=== PATIENT | female | born 1950 | race Caucasian/White ===

== ENCOUNTER 2016-12-18 17:02 | Observation (INO) ==
[2016-12-18] MEDS ORDERED: Aspirin 325 MG TABLET PO ONE (17:28)
[2016-12-18] MEDS ORDERED: 0.9 % Sodium Chloride 1,000 ML IVC ONE (17:28)
[2016-12-18 17:56] LABS: Basophils % 0.2 %; Eosinophils # 0.1 K/mcL (0.0-0.6); Eosinophils % 0.5 %; Hematocrit 41.8 % (35.3-44.9); Hemoglobin 13.9 g/dL (11.5-15.4); Immature Granulocytes % 0.5 % (0-4); Lymphocytes # 3.5 K/mcL (0.6-4.6); Lymphocytes % 26.3 %; Mean Corpuscular HGB Conc 33.3 g/dL (31.6-35.5); Mean Corpuscular Hemoglobin 30.5 pg (28.0-33.3); Mean Corpuscular Volume 91.7 fL (83.0-100.0); Mean Platelet Volume 10.2 fL (9.4-12.4); Monocytes % 7.3 %; Neutrophils # 8.5 K/mcL (1.6-8.9); Platelet Count 236 K/mcL (140-400); Red Blood Count 4.56 M/mcL (3.82-4.97); Red Cell Distribution Width 13.2 % (11.5-14.5); Segmented Neutrophils % 65.2 %
[2016-12-18 18:02] LABS: INR 1.1; Prothrombin Time 12.3 Seconds (9.4-12.1)
[2016-12-18 18:04] LABS: Activated Partial Thrombo Time 29.4 Seconds (26.0-36.0)
[2016-12-18 18:08] LABS: BUN/Creatinine Ratio 14 (6-26); Blood Urea Nitrogen 14 mg/dL (7-20); Calcium 9.9 mg/dL (8.6-10.8); Carbon Dioxide 26 mEq/L (19-29); Chloride 103 mEq/L (98-109); Glucose 110 mg/dL (70-99); Magnesium 1.7 mg/dL (1.6-2.6); Osmolality,Calculated 285 (280-300); Potassium 4.2 mEq/L (3.5-4.5); Sodium 137 mEq/L (136-145); eGFR For African Americans > 60 (> 60); eGFR For Non-African Americans 55 (> 60)
[2016-12-18 18:30] LABS: Thyroid Stimulating Hormone 1.334 mcIU/mL (0.350-4.840)
[2016-12-18] MEDS ORDERED: *HR* LORazepam 1 MG TABLET PO ONE (19:36)
--- NOTE | 2016-12-18 20:04 | Emergency Department Note ---
Disposition Clinical Impression: Palpitations Chest pain Qualifiers: Chest pain type: precordial pain Qualified Code(s): R07.2 - Precordial pain Disposition: Admitted As Inpatient Condition: Good Time of Disposition: 20:53 Arrhythmia/Palpitations HPI - General Chief Complaint: ED Arrhythmia/Palpitations Stated Complaint: ARUN, rapid HR Time Seen by Provider: 12/18/16 17:08 Source: patient Limitations: no limitations Nursing Notes Reviewed: Yes Vital Signs Reviewed: Yes - History of Present Illness HPI Narrative: 66-year-old female complains of palpitations for a few days. Earlier today she started to have shortness of breath and chest pain while walking. She had been calling Dr. Carreon's office this week and was told to come to the emergency department. - Related Data Home Medications Medication Instructions Recorded Confirmed Albuterol Sulfate [Proair Hfa] 2 puff IH Q4H PRN 12/11/16 12/18/16 Cetirizine HCl [Zyrtec] 10 mg PO DAILY 12/11/16 12/18/16 GlipiZIDE XL (24 HR) [Glucotrol XL] 2.5 mg PO 0800 12/11/16 12/18/16 LORazepam [Ativan] 0.5 mg PO BID 12/11/16 12/18/16 Losartan [Cozaar] 25 mg PO DAILY 12/11/16 12/18/16 Pantoprazole Sodium 40 mg PO BID 12/11/16 12/18/16 Ranitidine HCl [Acid Wave Solder Offbearer] 150 mg PO HS 12/11/16 12/18/16 Allergies Allergy/AdvReac Type Severity Reaction Status Date / Time Beclomethasone [From Qvar] Allergy Rash Verified 12/18/16 20:12 Hydromorphone [From Dilaudid] Allergy Confusion Verified 12/18/16 20:12 Sulfa (Sulfonamide Allergy Rash Verified 12/18/16 20:12 Antibiotics) naproxen AdvReac Gastrointestinal Verified 12/18/16 20:12 Upset Oxytetracycline AdvReac Gastrointestinal Verified 12/18/16 20:12 Upset prednisone AdvReac Chest Pain Verified 12/18/16 20:12 trazodone AdvReac See Verified 12/18/16 20:12 Comments All systems ED: reviewed and negative except as stated. Constitutional: Denies: fever, chills Eyes: Denies: eye pain ENT ED: Denies: ear pain Cardiovascular: Reports: as per HPI Respiratory: Reports: as per HPI Gastrointestinal: Denies: abdominal pain, nausea, vomiting Genitourinary: Denies: dysuria Musculoskeletal: Reports: neck pain Integumentary: Denies: rash Neurological: Denies: headache Psychiatric: Denies: anxiety Endocrine: Denies: fatigue Hematological/Lymphatic: Denies: easy bleeding Allergic/Immunologic: Denies: facial swelling Past Medical History - Past Medical History Medical history: Reports: asthma, diabetes Psychiatric history: Reports: no psych history - Social History Smoking Status: Never smoker Smokeless Tobacco Status: No Alcohol use: Reports: none Drug use: Reports: none Physical Exam - General Limitations: no limitations General appearance: alert - Head Head exam: normocephalic - Eye Eye exam: Present: EOMI - ENT ENT exam: mucous membranes moist - Chest Chest inspection: Present: symmetric chest wall rise - Respiratory Respiratory exam: Present: normal lung sounds bilaterally. Absent: respiratory distress - Cardiovascular Cardiovascular exam: Present: regular rate, normal rhythm - Abdominal Exam Abdominal exam: Present: soft, Non-Tender - Extremities Exam Extremities exam: Present: normal inspection, full ROM, normal capillary refill - Back Exam Back exam: Present: full ROM - Neurological Exam Neurological exam: Present: alert, oriented X3 - Psychiatric Psychiatric exam: Present: normal affect, anxious - Skin Skin exam: Present: warm, dry, intact, normal color. Absent: rash, cyanosis, diaphoresis Course Course Narrative: 66-year-old female complains of palpitations for a few days. Earlier today she started to have shortness of breath and chest pain while walking. She had been calling Dr. Carreon's office this week and was told to come to the emergency department. Workup initiated by ledy. Patient seen and examined. She is in no acute distress. Nontoxic. She declines analgesics. She does appear anxious, related to stress of her health. We will order her Ativan. - Reevaluation(s) Reevaluation #1: Workup unremarkable. However due to the patient's risk factors, we will request admission for cardiac rule out. Discussed with Dr. Jimenez who agreed Time: 20:04 Reevaluation #2: Patient was discussed with and accepted by hospitalist Time: 20:53 Vital Signs Temperature 99.1 F 12/18/16 17:03 Pulse Rate 96 12/18/16 17:03 Respiratory Rate 18 12/18/16 17:03 Blood Pressure 141/77 12/18/16 17:03 O2 Sat by Pulse Oximetry 99 12/18/16 17:03 Temperature 98.6 F 12/19/16 03:33 Pulse Rate 88 12/19/16 03:33 Respiratory Rate 16 12/19/16 03:33 Blood Pressure 115/76 12/19/16 03:33 O2 Sat by Pulse Oximetry 94 12/19/16 03:33 Oxygen Delivery Oxygen Delivery Room Air Arrhythmia/Palpitations - Lab Data Result diagrams: 12/19/16 00:46 12/19/16 00:46 Lab Results 12/18/16 12/18/16 12/18/16 Range/Units 17:50 17:50 17:50 WBC 13.1 H (4.3-11.1) K/mcL RBC 4.56 (3.82-4.97) M/mcL Hgb 13.9 (11.5-15.4) g/dL Hct 41.8 (35.3-44.9) % MCV 91.7 (83.0-100.0) fL MCH 30.5 (28.0-33.3) pg MCHC 33.3 (31.6-35.5) g/dL RDW 13.2 (11.5-14.5) % Plt Count 236 (140-400) K/mcL MPV 10.2 (9.4-12.4) fL Immature Gran % 0.5 (0-4) % Seg Neutrophils % 65.2 % Lymphocytes % 26.3 % Monocytes % 7.3 % Eosinophils % 0.5 % Basophils % 0.2 % Neutrophils # 8.5 (1.6-8.9) K/mcL Lymphocytes # 3.5 (0.6-4.6) K/mcL Monocytes # 1.0 (0.0-1.3) K/mcL Eosinophils # 0.1 (0.0-0.6) K/mcL Basophils # 0.0 (0.0-0.2) K/mcL PT 12.3 H (9.4-12.1) Seconds INR 1.1 APTT 29.4 (26.0-36.0) Seconds Sodium 137 (136-145) mEq/L Potassium 4.2 (3.5-4.5) mEq/L Chloride 103 (98-109) mEq/L Carbon Dioxide 26 (19-29) mEq/L BUN 14 (7-20) mg/dL Creatinine 1.01 (0.57-1.11) mg/dL Est GFR ( Amer) > 60 (> 60) Est GFR (Non-Af Amer) 55 L (> 60) BUN/Creatinine Ratio 14 (6-26) Glucose 110 H (70-99) mg/dL Calculated Osmolality 285 (280-300) Calcium 9.9 (8.6-10.8) mg/dL Magnesium 1.7 (1.6-2.6) mg/dL Troponin I (0-0.03) ng/mL TSH 1.334 (0.350-4.840) mcIU/mL Urine Color (Yellow) Urine Clarity (Clear) Urine pH (5.0-8.0) pH Units Ur Specific [place] (1.010-1.025) Urine Protein (Neg-Trace) mg/dL Urine Glucose (UA) (Normal) mg/dL Urine Ketones (Negative) mg/dL Urine Blood (Negative) Urine Nitrite (Negative) Urine Bilirubin (Negative) Urine Urobilinogen (Normal) mg/dL Ur Leukocyte Esterase (Negative) Urine Microscopic RBC (0-3) per hpf Urine Microscopic WBC (0-3) per hpf Ur Squamous Epith Cells (None-Few) per lpf Urine Bacteria (None-Few) per hpf Hyaline Casts (None-Few) per lpf Ur Culture Indicated? (NO) 12/18/16 12/18/16 Range/Units 17:50 18:30 WBC (4.3-11.1) K/mcL RBC (3.82-4.97) M/mcL Hgb (11.5-15.4) g/dL Hct (35.3-44.9) % MCV (83.0-100.0) fL MCH (28.0-33.3) pg MCHC (31.6-35.5) g/dL RDW (11.5-14.5) % Plt Count (140-400) K/mcL MPV (9.4-12.4) fL Immature Gran % (0-4) % Seg Neutrophils % % Lymphocytes % % Monocytes % % Eosinophils % % Basophils % % Neutrophils # (1.6-8.9) K/mcL Lymphocytes # (0.6-4.6) K/mcL Monocytes # (0.0-1.3) K/mcL Eosinophils # (0.0-0.6) K/mcL Basophils # (0.0-0.2) K/mcL PT (9.4-12.1) Seconds INR APTT (26.0-36.0) Seconds Sodium (136-145) mEq/L Potassium (3.5-4.5) mEq/L Chloride (98-109) mEq/L Carbon Dioxide (19-29) mEq/L BUN (7-20) mg/dL Creatinine (0.57-1.11) mg/dL Est GFR ( Amer) (> 60) Est GFR (Non-Af Amer) (> 60) BUN/Creatinine Ratio (6-26) Glucose (70-99) mg/dL Calculated Osmolality (280-300) Calcium (8.6-10.8) mg/dL Magnesium (1.6-2.6) mg/dL Troponin I 0.00 (0-0.03) ng/mL TSH (0.350-4.840) mcIU/mL Urine Color Yellow (Yellow) Urine Clarity Clear (Clear) Urine pH 6.5 (5.0-8.0) pH Units Ur Specific [place] 1.007 L (1.010-1.025) Urine Protein Negative (Neg-Trace) mg/dL Urine Glucose (UA) Normal (Normal) mg/dL Urine Ketones Negative (Negative) mg/dL Urine Blood Small H (Negative) Urine Nitrite Negative (Negative) Urine Bilirubin Negative (Negative) Urine Urobilinogen Normal (Normal) mg/dL Ur Leukocyte Esterase Trace H (Negative) Urine Microscopic RBC 0-3 (0-3) per hpf Urine Microscopic WBC 3-5 H (0-3) per hpf Ur Squamous Epith Cells Moderate H (None-Few) per lpf Urine Bacteria None Seen (None-Few) per hpf Hyaline Casts None Seen (None-Few) per lpf Ur Culture Indicated? YES A (NO) Attestation Statement - Attestation Attestation: I, Alan Jimenez, examined this patient and my medical decision-making was reviewed with the GRAIN OPERATIONS MANAGER/PA/Advanced Practice Nurse/Resident Physician. I agree with the documented findings, disposition and treatment plan as described except to the extent set forth below. 66-year-old female presents with concerns of palpitations and weakness. Patient states her heart rate has intermittently been up to 140 bpm and resolves without intervention. Patient states she has intermittent chest pain with these palpitations. She recently had a cervical spine surgery performed by Dr. Sanchez and is currently wearing a cervical collar. Patient denies fever , chills, nausea, vomiting, abdominal pain. Patient is tearful during my exam however the lungs are clear to auscultation and the heart is in a regular rate and rhythm during my evaluation. Her initial troponin was negative. Patient will be admitted to the hospital for further care and evaluation of palpitations and chest pain.
[2016-12-18 20:13] LABS: Bilirubin,Urine Negative (Negative); Blood,Urine Small (Negative); Clarity,Urine Clear (Clear); Color,Urine Yellow (Yellow); Glucose,Urine (UA) Normal (Normal); Ketones,Urine Negative (Negative); Leukocyte Esterase,Urine Trace (Negative); Nitrite,Urine Negative (Negative); PH,Urine 6.5 pH Units (5.0-8.0); Protein,Urine Negative (Neg-Trace); Specific Gravity,Urine 1.007 (1.010-1.025); Urobilinogen,Urine Normal (Normal)
[2016-12-18 20:15] LABS: Bacteria,Urine None Seen per hpf (None-Few); Hyaline Casts,Urine None Seen per lpf (None-Few); RBC,Urine 0-3 per hpf (0-3); Squamous Epithelial Cell,Urine Moderate per lpf (None-Few)
[2016-12-18] MEDS ORDERED: Naloxone 0.4 MG/ML INJ IVP PRN (21:40)
[2016-12-18] MEDS ORDERED: Acetaminophen 325 MG TABLET PO PRN (21:40)
[2016-12-18] MEDS ORDERED: Ondansetron 4 MG/2 ML VIAL IVP PRN (21:40)
[2016-12-18] MEDS ORDERED: D5% in Water 1,000 ML IVC PRN (21:45)
[2016-12-18] MEDS ORDERED: Dextrose Gel 15 GM PO PRN ×2 (21:45)
[2016-12-18] MEDS ORDERED: *HR* Dextrose 50 % in Water (Syg) 50 ML SYRINGE IVP PRN (21:45)
--- NOTE | 2016-12-18 21:45 | Internal Med History&Physical ---
<Keysha Vaughn M - Last Filed: 12/18/16 23:30> Date of Encounter: 12/18/16 Time of Encounter: 21:44 Assessment and Plan (1) Chest pain Current visit: Yes Status: Acute Patient presents with chest tightness, occasional shortness breath and palpitations. EKG showed sinus rhythm with right bundle branch block and no changes from previous EKGs. Troponin was negative at 0.00. Continuous pvc monitor Serial troponins Lipid panel with a.m. labs Echocardiogram Stress test Qualifiers: Chest pain type: precordial pain Qualified Code(s): R07.2 - Precordial pain (2) Palpitations Current visit: Yes Status: Acute Patient reports occasional palpitations with shortness breath, reports the symptoms have been on and off for months. She is afraid she may have atrial fibrillation, like her brother and sister. EKG shows sinus rhythm. Heart with regular rate and rhythm on exam. Continuous pvc monitor. Echocardiogram in the morning (3) Type 2 diabetes mellitus Current visit: Yes Status: Acute Diabetic diet Check blood sugars before meals and at bedtime Sliding scale insulin before meals at bedtime Hypoglycemic protocol Qualifiers: Diabetes mellitus complication status: without complication Diabetes mellitus correction insulin use: without correction use Qualified Code(s): E11.9 - Type 2 diabetes mellitus without complications (4) Hypertension Current visit: Yes Status: Acute Continue home dose of losartan Qualifiers: Hypertension type: essential hypertension Qualified Code(s): I10 - Essential (primary) hypertension (5) DVT prophylaxis Current visit: Yes Status: Acute Antiembolic stockings Lovenox subcutaneous daily Internal Medicine - H&P: HPI Chief complaint: chest pain Admitted From: Emergency Dept Plans for Post Hospital Care: Home History of present illness: Ms. Anthony is a 66 year old female with hypertension, diabetes, sleep apnea, GERD, presents to the emergency department today with complaints of palpitations , and chest pain. Patient reports that she has had chest tightness, shortness of breath, and palpitations on and off for several months. She reports that yesterday in the morning her symptoms started on and off, and today in addition to chest tightness, occasional shortness of breath and palpitations, she had a sharp pain in her chest as well as diaphoresis. She reports occasional lightheadedness, she reports nausea the last couple of days, she denies any vomiting, fever or chills. One week ago she had an anterior spinal fusion of the C4-C6 with discectomy by Dr. Sanchez. She wears a c-collar when ambulating , and reports a c-collar presses on her chest at times so she is not sure if the chest pain is related to that. Patient follows with Dr. humphreys and cardiology as an outpatient, and had an appointment with him on December 03 for presurgical clearance. She spoke to his office today and yesterday and they instructed her to come to the emergency department. Evaluation in the emergency department included an EKG which showed right bundle branch block, sinus rhythm unchanged from previous EKGs, chest x-ray showed no acute cardiopulmonary disease, troponin was negative at 0.00. White blood cell count was elevated to 13.1, however this is likely reactive to patient's recent surgery. On exam, patient alert and oriented, in no acute distress. Heart had regular rate and rhythm with systolic murmur. Lungs are clear bilaterally to auscultation. Anterior neck incision clean and dry with Steri-Strips and petroleum gauze in place. She had anterior neck swelling, patient reports this is down since her surgery. She also had ecchymosis on her chest which she reports was from her surgery. No peripheral edema, peripheral pulses intact. Past Med Surg Social Fam HX - Past Medical History Medical history: asthma, diabetes, GERD, hypertension Psychiatric history: anxiety - Past Surgical History Surgical History: appendectomy, cholecystectomy, hysterectomy, orthopedic, other - Social History Smoking Status: Never smoker Smokeless Tobacco Status: No Alcohol use: none Drug use: none - Family History Mother Living Status: Cause of : CVA Hx Family Cardiac Disorders: Yes Hx Family Respiratory Disorders: Yes (blood clots in lungs) Father Living Status: Cause of : [place] Hx Family Cardiac Disorders: Yes (heart attack) Sister Living Status: Still Living Hx Family Cardiac Disorders: Yes (pacer, afib) Hx Family Cancer: Yes (colon, bladder, kidney) Brother Living Status: Still Living Hx Family Cardiac Disorders: Yes (pacer) Internal Medicine - H&P: Meds Albuterol Sulfate [Proair Hfa] 2 puff IH Q4H PRN 12/11/16 [History] Cetirizine HCl [Zyrtec] 10 mg PO DAILY 12/11/16 [History] GlipiZIDE XL (24 HR) [Glucotrol XL] 2.5 mg PO 0800 12/11/16 [History] LORazepam [Ativan] 0.5 mg PO BID 12/11/16 [History] Losartan [Cozaar] 25 mg PO DAILY 12/11/16 [History] Pantoprazole Sodium 40 mg PO BID 12/11/16 [History] Ranitidine HCl [Acid Pull Out Operator] 150 mg PO HS 12/11/16 [History] Allergies Beclomethasone [From Qvar] Allergy (Verified 12/18/16 20:12) Rash Hydromorphone [From Dilaudid] Allergy (Verified 12/18/16 20:12) Confusion Sulfa (Sulfonamide Antibiotics) Allergy (Verified 12/18/16 20:12) Rash naproxen Adverse Reaction (Verified 12/18/16 20:12) Gastrointestinal Upset Oxytetracycline Adverse Reaction (Verified 12/18/16 20:12) Gastrointestinal Upset prednisone Adverse Reaction (Verified 12/18/16 20:12) Chest Pain trazodone Adverse Reaction (Verified 12/18/16 20:12) See Comments "felt weird" All Systems PM: A 10-system review of systems was performed and is negative for pertinent findings except as documented above in the HPI. - Constitutional Constitutional: anorexia, no chills, no fever(s), no night sweats - EENT Eyes: no change in vision, no discharge, no pain, no photophobia Ears: no ear discharge, no ear pain, no tinnitus Nose, mouth and throat: no dysphagia, no nasal discharge, no neck pain, no sore throat - Cardiovascular Cardiovascular ROS IM: chest pain, diaphoresis, dyspnea, lightheadedness, palpitations, no syncope - Respiratory Respiratory: no cough, no dyspnea, no wheezing, no excessive phlegm production - Gastrointestinal Gastrointestinal: nausea, no abdominal pain, no diarrhea, no hematemesis, no hematochezia, no melena, no vomiting - Genitourinary Genitourinary: no change in urinary stream, no dysuria, no flank pain, no hematuria - Musculoskeletal Musculoskeletal ROS IM: no numbness, no tingling - Integumentary Integumentary IM: no rash, no unusual bruising - Neurological Neurological ROS: no confusion, no convulsions, no focal weakness, no numbness, no tingling, no tremor(s) - Hematologic/Lymphatic Hematologic/Lymphatic: no easy bruising - Constitutional Vitals: Temp Pulse Resp BP Pulse Ox 97.6 F 91 16 134/80 97 12/18/16 21:21 12/18/16 21:21 12/18/16 21:21 12/18/16 21:21 12/18/16 21:21 General appearance: Present: A&O X 3, pleasant, no acute distress - Head Head exam: Present: atraumatic, normocephalic - Eye Eye exam: Present: PERRL, conjuntiva pink, sclera anicteric Pupils: Present: PERRL - Neck Neck exam general surgery: Present: supple, trachea midline. Absent: lymphadenopathy - Respiratory Respiratory exam: Present: CTAB. Absent: accessory muscle use, rales, rhonchi, wheezes - Cardiovascular Cardiovascular exam: Present: RRR, +S1, +S2, systolic murmur. Absent: diastolic murmur, gallop, rubs - GI/Abdominal GI/Abdominal exam: Present: normal bowel sounds, soft, no peritoneal signs. Absent: distended, tenderness - Extremities Exam Extremities exam: Present: warm, radial pulses palpable and symetrical. Absent : calf tenderness, cyanotic, pedal edema - Neurological Exam Neurological exam: Present: CN II-XII intact, oriented X3, no focal deficits. Absent: facial droop, speech deficit - Skin Skin exam: Present: dry, intact Internal Med - H&P Results - Labs CBC & Chem 7: 12/18/16 17:50 12/18/16 17:50 Labs: All Lab Results (24 Hours) 12/18/16 12/18/16 12/18/16 Range/Units 17:50 17:50 17:50 WBC 13.1 H (4.3-11.1) K/mcL RBC 4.56 (3.82-4.97) M/mcL Hgb 13.9 (11.5-15.4) g/dL Hct 41.8 (35.3-44.9) % MCV 91.7 (83.0-100.0) fL MCH 30.5 (28.0-33.3) pg MCHC 33.3 (31.6-35.5) g/dL RDW 13.2 (11.5-14.5) % Plt Count 236 (140-400) K/mcL MPV 10.2 (9.4-12.4) fL Immature Gran % 0.5 (0-4) % Seg Neutrophils % 65.2 % Lymphocytes % 26.3 % Monocytes % 7.3 % Eosinophils % 0.5 % Basophils % 0.2 % Neutrophils # 8.5 (1.6-8.9) K/mcL Lymphocytes # 3.5 (0.6-4.6) K/mcL Monocytes # 1.0 (0.0-1.3) K/mcL Eosinophils # 0.1 (0.0-0.6) K/mcL Basophils # 0.0 (0.0-0.2) K/mcL PT 12.3 H (9.4-12.1) Seconds INR 1.1 APTT 29.4 (26.0-36.0) Seconds Sodium 137 (136-145) mEq/L Potassium 4.2 (3.5-4.5) mEq/L Chloride 103 (98-109) mEq/L Carbon Dioxide 26 (19-29) mEq/L BUN 14 (7-20) mg/dL Creatinine 1.01 (0.57-1.11) mg/dL Est GFR ( Amer) > 60 (> 60) Est GFR (Non-Af Amer) 55 L (> 60) BUN/Creatinine Ratio 14 (6-26) Glucose 110 H (70-99) mg/dL POC Glucose (58-89) Calculated Osmolality 285 (280-300) Calcium 9.9 (8.6-10.8) mg/dL Magnesium 1.7 (1.6-2.6) mg/dL Troponin I (0-0.03) ng/mL TSH 1.334 (0.350-4.840) mcIU/mL Urine Color (Yellow) Urine Clarity (Clear) Urine pH (5.0-8.0) pH Units Ur Specific [place] (1.010-1.025) Urine Protein (Neg-Trace) mg/dL Urine Glucose (UA) (Normal) mg/dL Urine Ketones (Negative) mg/dL Urine Blood (Negative) Urine Nitrite (Negative) Urine Bilirubin (Negative) Urine Urobilinogen (Normal) mg/dL Ur Leukocyte Esterase (Negative) Urine Microscopic RBC (0-3) per hpf Urine Microscopic WBC (0-3) per hpf Ur Squamous Epith Cells (None-Few) per lpf Urine Bacteria (None-Few) per hpf Hyaline Casts (None-Few) per lpf Ur Culture Indicated? (NO) 12/18/16 12/18/16 12/18/16 Range/Units 17:50 18:30 21:41 WBC (4.3-11.1) K/mcL RBC (3.82-4.97) M/mcL Hgb (11.5-15.4) g/dL Hct (35.3-44.9) % MCV (83.0-100.0) fL MCH (28.0-33.3) pg MCHC (31.6-35.5) g/dL RDW (11.5-14.5) % Plt Count (140-400) K/mcL MPV (9.4-12.4) fL Immature Gran % (0-4) % Seg Neutrophils % % Lymphocytes % % Monocytes % % Eosinophils % % Basophils % % Neutrophils # (1.6-8.9) K/mcL Lymphocytes # (0.6-4.6) K/mcL Monocytes # (0.0-1.3) K/mcL Eosinophils # (0.0-0.6) K/mcL Basophils # (0.0-0.2) K/mcL PT (9.4-12.1) Seconds INR APTT (26.0-36.0) Seconds Sodium (136-145) mEq/L Potassium (3.5-4.5) mEq/L Chloride (98-109) mEq/L Carbon Dioxide (19-29) mEq/L BUN (7-20) mg/dL Creatinine (0.57-1.11) mg/dL Est GFR ( Amer) (> 60) Est GFR (Non-Af Amer) (> 60) BUN/Creatinine Ratio (6-26) Glucose (70-99) mg/dL POC Glucose 108 H (58-89) Calculated Osmolality (280-300) Calcium (8.6-10.8) mg/dL Magnesium (1.6-2.6) mg/dL Troponin I 0.00 (0-0.03) ng/mL TSH (0.350-4.840) mcIU/mL Urine Color Yellow (Yellow) Urine Clarity Clear (Clear) Urine pH 6.5 (5.0-8.0) pH Units Ur Specific [place] 1.007 L (1.010-1.025) Urine Protein Negative (Neg-Trace) mg/dL Urine Glucose (UA) Normal (Normal) mg/dL Urine Ketones Negative (Negative) mg/dL Urine Blood Small H (Negative) Urine Nitrite Negative (Negative) Urine Bilirubin Negative (Negative) Urine Urobilinogen Normal (Normal) mg/dL Ur Leukocyte Esterase Trace H (Negative) Urine Microscopic RBC 0-3 (0-3) per hpf Urine Microscopic WBC 3-5 H (0-3) per hpf Ur Squamous Epith Cells Moderate H (None-Few) per lpf Urine Bacteria None Seen (None-Few) per hpf Hyaline Casts None Seen (None-Few) per lpf Ur Culture Indicated? YES A (NO) - Diagnostic Studies Chest x-ray Additional comments: Chest X-Ray 12/18/16 17:28 IMPRESSION: No acute cardiopulmonary disease. D/ / Westley Ku MD / Westley uK MD Interpreting Provider: Westley Ku MD <Jonah Logan - Last Filed: 12/18/16 23:42> Date of Encounter: 12/18/16 Internal Medicine - H&P: HPI History of present illness: Ms. Anthony is a 66 year old female All Systems PM: A 10-system review of systems was performed and is negative for pertinent findings except as documented above in the HPI. - Constitutional Vitals: Temp Pulse Resp BP Pulse Ox 98.1 F 101 20 123/75 93 12/18/16 23:09 12/18/16 23:09 12/18/16 23:09 12/18/16 23:09 12/18/16 23:09 Internal Med - H&P Results - Labs CBC & Chem 7: 12/18/16 17:50 12/18/16 17:50 - Attending Attestation For this encounter, I have reviewed the METAL BUGGY OPERATOR or PA documentation, treatment plan, and medical decision making; and I have had face to face time with this patient. Seeing patient at bedside. Chest pain feeling better. EKG reviewed by self rate 88, No significant ST changes but QRS changes. Discussed plan of care with trend trop, EKG, stress testing in the a.m Chest pain r/o Possible relation to recent surgery but given cardiac hx, will rule out with cardiac testing
[2016-12-18] MEDS: *HR* LORazepam 0.5 MG TABLET PO SCH (22:27)
[2016-12-18] MEDS: Famotidine 20 MG TABLET PO SCH (22:27)
[2016-12-18] MEDS: Insulin LISPRO 300 UNITS/3 ML VIAL SQ SCH (22:27)
[2016-12-19 01:21] LABS: Basophils % 0.3 %; Eosinophils # 0.1 K/mcL (0.0-0.6); Hematocrit 37.3 % (35.3-44.9); Hemoglobin 12.8 g/dL (11.5-15.4); Immature Granulocytes % 0.6 % (0-4); Lymphocytes # 4.7 K/mcL (0.6-4.6); Lymphocytes % 34.9 %; Mean Corpuscular HGB Conc 34.3 g/dL (31.6-35.5); Mean Corpuscular Hemoglobin 31.5 pg (28.0-33.3); Mean Corpuscular Volume 91.9 fL (83.0-100.0); Mean Platelet Volume 10.5 fL (9.4-12.4); Monocytes # 1.2 K/mcL (0.0-1.3); Monocytes % 8.7 %; Neutrophils # 7.4 K/mcL (1.6-8.9); Platelet Count 215 K/mcL (140-400); Red Blood Count 4.06 M/mcL (3.82-4.97); Red Cell Distribution Width 13.2 % (11.5-14.5); Segmented Neutrophils % 54.5 %
[2016-12-19 01:33] LABS: Calcium 9.3 mg/dL (8.6-10.8); Potassium 3.8 mEq/L (3.5-4.5)
[2016-12-19 01:34] LABS: Chol/HDL Ratio 3.4 (0-4.9)
[2016-12-19] MEDS ORDERED: Regadenoson 0.4 MG/5 ML SYRINGE IVP ONE (05:56)
[2016-12-19] MEDS: *HR* Enoxaparin 40 MG/0.4 ML SYRINGE SQ SCH (06:01)
[2016-12-19] MEDS: Insulin LISPRO 300 UNITS/3 ML VIAL SQ SCH ×4 (07:53→21:50)
--- NOTE | 2016-12-19 09:49 | Cardiology Consult Note ---
Date of Encounter: 12/19/16 Time of Encounter: 09:36 Assessment and Plan (1) Left ventricular outflow tract obstruction Current Visit: Yes Status: Acute TTE shows hypertrophic cardiomyopathy with LVOT obstruction at rest. TTE: EF 70%, hyperdynamic LV systolic function with near cavity obliteration. Severe basal septal hypertrophy (2.1cm) with LVOT obstruction at rest, peak velocity 53 mmHG. Hyperdynamic RV systolic function. ADDISON of MV with mild MR. IVC is small. 24 hour telemetry review shows NSR with Avg HR 99 bpm. Occasional sinus tachycardia with HR up to 120 bpm through the night seen. HR currently in the 80 's. No VT or PVC seen. No significant bradycardia seen. Recommend IV hydration. Likely dehydrated increasing symptoms. Patient states that she drinks plenty of fluid. Start beta alonso therapy. Avoid diuretic use. Out-pt f/u with primary analysis evaluator Dr. Spears in 1-2 weeks will be coordinated by [facility]. (2) Hypertrophic cardiomyopathy Current Visit: Yes Status: Acute Discussion w patient/family: The assessment and plan as outlined above was discussed with the patient and/or family members who expressed understanding and agreement. All questions were answered. Thank you for involving us in the care of your patient. Please call with any questions. History of Present Illness Consult date: 12/19/16 Requesting physician: Mireille Blackwood Consult reason: Abnormal echo Chief complaint: Palpitations, SOB, diaphoresis History of present illness: Ms. Anthony is a 66 year old female with a history of DM type II, HTN, HLD. She presented with the c/o palpitations associated SOB and diaphoresis increased over the past two days. Reports intermittent symptoms since August of this year. She is s/p cervical neck surgery one week ago and continues to wear a neck brace. Cardiology consulted for abnormal echocardiogram. Stress test cancelled this morning due to abnormal TTE. No history of CAD. [facility] in 2013 showed normal coronary arteries. TTE 11/11/15: LVEF 75%, mild asymmetric septal hypertrophy, no LVOT obstruction, normal RV, normal RVSP, mild MR. Event monitor 11/14/15 through 11/27/15: sinus rhythm and sinus tachycardia, no ectopy, symptoms correlate with mild sinus tachycardia. TTE 05/18/14: LVEF 60-65%, moderate asymmetric LV basal septal hypertrophy, no LVOT obstruction, moderate diastolic dysfunction, normal RV, normal RVSP, mild left atrial enlargement, no significant valvular dysfunction LHC 05/18/14: normal coronary arteries, LVEF 65%. Holter 05/23/15: sinus rhythm with averge heart rate of 76 bpm, rare PACs, rare PVCs, 4 short runs of atrial tachycardia. Past Med Surg Social Fam HX - Past Medical History Medical history: asthma, diabetes, hyperlipidemia, hypertension Psychiatric history: no psych history - Past Surgical History Surgical History: appendectomy, cholecystectomy, hysterectomy, orthopedic, other - Social History Smoking Status: Never smoker Smokeless Tobacco Status: No Alcohol use: none Drug use: none - Family History Mother Living Status: Cause of : CVA Hx Family Cardiac Disorders: Yes Hx Family Respiratory Disorders: Yes (blood clots in lungs) Father Living Status: Cause of : [place] Hx Family Cardiac Disorders: Yes (heart attack) Sister Living Status: Still Living Hx Family Cardiac Disorders: Yes (pacer, afib) Hx Family Cancer: Yes (colon, bladder, kidney) Brother Living Status: Still Living Hx Family Cardiac Disorders: Yes (pacer) Medications and Allergies Albuterol Sulfate [Proair Hfa] 2 puff IH Q4H PRN 12/11/16 [History] Cetirizine HCl [Zyrtec] 10 mg PO DAILY 12/11/16 [History] GlipiZIDE XL (24 HR) [Glucotrol XL] 2.5 mg PO 0800 12/11/16 [History] LORazepam [Ativan] 0.5 mg PO BID 12/11/16 [History] Losartan [Cozaar] 25 mg PO DAILY 12/11/16 [History] Pantoprazole Sodium 40 mg PO BID 12/11/16 [History] Ranitidine HCl [Acid Apprentice Architect] 150 mg PO HS 12/11/16 [History] Allergies Beclomethasone [From Qvar] Allergy (Verified 12/18/16 20:12) Rash Hydromorphone [From Dilaudid] Allergy (Verified 12/18/16 20:12) Confusion Sulfa (Sulfonamide Antibiotics) Allergy (Verified 12/18/16 20:12) Rash naproxen Adverse Reaction (Verified 12/18/16 20:12) Gastrointestinal Upset Oxytetracycline Adverse Reaction (Verified 12/18/16 20:12) Gastrointestinal Upset prednisone Adverse Reaction (Verified 12/18/16 20:12) Chest Pain trazodone Adverse Reaction (Verified 12/18/16 20:12) See Comments "felt weird" All Systems Review: A 10-system review of systems was performed and is negative for pertinent findings except as documented above in the HPI. Physical Examination General: Conversant, No Apparent Distress HEENT: Atraumatic, Normocephaly, Mucus Membranes Moist Neck: No JVD, Normal carotid pulses, Other (Anterior neck dressing D/I, neck brace on. ) Cardiac: Reg Rate and Rhythm, Normal S1 and S2, No Murmur, Other (EKG shows SR with incomplete RBBB) Lungs: Normal Breath Sounds, No Wheeze, Rales, Rhonchi Neuro: Alert and responsive, No focal deficits noted Abdomen: Soft, Non-Tender Skin: No rashes noted on visualized skin Musculoskeletal: No Chest Wall Tenderness Extremities: No Clubbing, No Cyanosis, No Edema, Normal Pulses Results 12/19/16 00:46 12/19/16 00:46 Lab Results 12/19/16 12/19/16 12/19/16 00:46 00:46 00:46 WBC 13.6 H Hgb 12.8 Hct 37.3 Plt Count 215 Sodium 138 Potassium 3.8 Chloride 106 Carbon Dioxide 23 BUN 15 Creatinine 1.14 H Glucose 173 H Calcium 9.3 Troponin I 0.00 12/19/16 05:50 WBC Hgb Hct Plt Count Sodium Potassium Chloride Carbon Dioxide BUN Creatinine Glucose Calcium Troponin I 0.00 - Imaging and Cardiology Echo: report reviewed Consult Discharge Plan - Plan Referrals: Omar Medrano MD [Primary Care Provider] -
[2016-12-19] MEDS: *HR* LORazepam 0.5 MG TABLET PO SCH ×2 (10:00→20:19)
[2016-12-19] MEDS ORDERED: 0.9 % Sodium Chloride 1,000 ML IVC SCH (10:45)
--- NOTE | 2016-12-19 13:59 | Electrocardiograph Report ---
[place] [id number] Test Date: 2016-12-18 Pat Name: Julia Anthony Department: 105 Room: 3B Gender: F Psychologist: : 1950 Requested By: Mitch Valdivia Order Number: [id number] Reading MD: Enoch Lacy MD Measurements Intervals [place] Rate: 88 P: 21 CT: 156 QRS: 4 QRSD: 128 T: -10 QT: 400 QTc: 445 Interpretive Statements SINUS RHYTHM RBBB MINIMAL VOLTAGE CRITERIA FOR LVH, CONSIDER NORMAL VARIANT Electronically Signed On 12-19-2016 13:57:14 EDT by Enoch Lacy MD
--- NOTE | 2016-12-19 14:17 | Electrocardiograph Report ---
[place] [id number] Test Date: 2016-12-19 Pat Name: Julia Anthony Department: 113 Room: 3B Gender: F Bobbin Painter: : 1950 Requested By: Keysha Vaughn Order Number: [id number] Reading MD: Enoch Lacy MD Measurements Intervals [place] Rate: 87 P: 62 NV: 154 QRS: 20 QRSD: 130 T: -7 QT: 408 QTc: 453 Interpretive Statements SINUS RHYTHM RIGHT BUNDLE BRANCH BLOCK Electronically Signed On 12-19-2016 14:15:44 EDT by Enoch Lacy MD
--- NOTE | 2016-12-19 17:26 | Internal Med Progress Note ---
Date of Encounter: 12/19/16 Time of Encounter: 14:30 - Assessment and plan (1) Chest pain Current Visit: Yes Status: Acute Assessment and plan: Patient had an abnormal echocardiogram and cardiology was brought on board. She has been started on a beta alonso. Mild acute kidney injury superimposed on chronic kidney disease noted overnight, gentle fluid rehydration. Stress test was canceled and not clinically indicated at this time per cardiology. Chest x-ray negative. We will observe overnight on new medication and possibly discharge tomorrow pending clinical outcomes. ITS Impressions Chest X-Ray 12/18/16 17:28 IMPRESSION: No acute cardiopulmonary disease. D/ / Westley Ku MD / Westley Ku MD Interpreting Provider: Westley Ku MD Echocardiogram impressions: LVEF 70%. Hyperdynamic LV systolic function with near cavity obliteration. There is a severe basal septal hypertrophy with an LVOT obstruction at rest, peak velocity 53 mmHg. Hyperdynamic RV systolic function. Systolic anterior motion of the mitral valve is noted with mild mitral regurgitation. No pulmonary hypertension. IVC is small in size. Qualifiers: Chest pain type: precordial pain Qualified Code(s): R07.2 - Precordial pain (2) Left ventricular outflow tract obstruction Current Visit: Yes Status: Acute Assessment and plan: As noted on echocardiogram. Cardiology brought on board and have recommended hydration and have started her on beta alonso therapy. Will observe overnight on new medications and possibly discharge tomorrow pending clinical outcomes. (3) Hypertrophic cardiomyopathy Current Visit: Yes Status: Acute (4) Palpitations Current Visit: Yes Status: Resolved (5) S/P cervical spinal fusion Current Visit: Yes Status: Chronic Assessment and plan: Patient stating she is healing well and states that her pain is improving. She also states swelling to her anterior neck with subsequent difficulty swallowing has improved greatly. Currently tolerating a regular diet. (6) Abnormal urinalysis Current Visit: Yes Status: Acute Assessment and plan: Patient denies dysuria. She states she had a bladder sling placed approximately 10 years ago. She does have a history of urinary tract infections. Will await urine culture and treat if indicated. Urinalysis appears mostly consistent with a contamination so will hold off on antibiotics at this time and monitor. (7) Type 2 diabetes mellitus Current Visit: Yes Status: Chronic Assessment and plan: Controlled with a recent A1c of 5.7%. Continue sliding scale while admitted Qualifiers: Diabetes mellitus complication status: without complication Diabetes mellitus termite helper insulin use: without termite helper use Qualified Code(s): E11.9 - Type 2 diabetes mellitus without complications (8) Hypertension Current Visit: Yes Status: Chronic Assessment and plan: Controlled, we will continue to trend and adjust medications as indicated. Qualifiers: Hypertension type: essential hypertension Qualified Code(s): I10 - Essential (primary) hypertension (9) CKD (chronic kidney disease) stage 3, GFR 30-59 ml/min Current Visit: Yes Status: Chronic Assessment and plan: Mild acute kidney injury overnight, gentle IV fluids, will recheck in the morning (10) Leukocytosis Current Visit: Yes Status: Acute Assessment and plan: Stable and likely secondary to her surgery from last week. Also trending abnormal urinalysis. (11) DVT prophylaxis Current Visit: Yes Status: Acute Assessment and plan: Subcutaneous Lovenox while admitted - Subjective Interval history: Patient seen and examined. On examination, patient sitting upright in bed. Patient's main complaint at this time is that she is hungry. Patient also complaining of generalized malaise. She denies dysuria. - Constitutional Vitals: Temp Pulse Resp BP Pulse Ox 98.2 F 83 17 108/66 99 12/19/16 16:09 12/19/16 16:09 12/19/16 16:09 12/19/16 16:09 12/19/16 16:09 General appearance: Present: A&O X 3, pleasant, no acute distress, answers questions appropriately - Head Head exam: Present: atraumatic, normocephalic - Eye Eye exam: Present: PERRL, conjuntiva pink, sclera anicteric Pupils: Present: PERRL - Neck Neck exam general surgery: Present: supple, trachea midline. Absent: lymphadenopathy - Respiratory Respiratory exam: Present: CTAB. Absent: accessory muscle use, rales, respiratory distress, rhonchi, wheezes - Cardiovascular Cardiovascular exam: Present: RRR, +S1, +S2. Absent: diastolic murmur, gallop, rubs, systolic murmur - GI/Abdominal GI/Abdominal exam: Present: normal bowel sounds, soft, no peritoneal signs. Absent: distended, tenderness - Extremities Exam Extremities exam: Present: warm, radial pulses palpable and symetrical. Absent : calf tenderness, cyanotic, pedal edema - Neurological Exam Neurological exam: Present: alert, CN II-XII intact, oriented X3, no focal deficits, strengths equal and symetr throughout. Absent: pronater drift, facial droop, speech deficit - Skin Skin exam: Present: dry, intact, pallor, warm Internal Medicine: Result - Labs CBC & Chem 7: 12/19/16 00:46 12/19/16 00:46 Labs: Short CBC 12/19/16 Range/Units 00:46 WBC 13.6 H (4.3-11.1) K/mcL Hgb 12.8 (11.5-15.4) g/dL Hct 37.3 (35.3-44.9) % Plt Count 215 (140-400) K/mcL Neutrophils # 7.4 (1.6-8.9) K/mcL BMP 12/19/16 00:46 Sodium 138 Potassium 3.8 Chloride 106 Carbon Dioxide 23 BUN 15 Creatinine 1.14 H Glucose 173 H Calcium 9.3 Cardiac Enzymes 12/19/16 12/19/16 Range/Units 00:46 05:50 Troponin I 0.00 0.00 (0-0.03) ng/mL - ABG Interpretation ABG results: PT/INR, D-dimer PT 12.3 Seconds (9.4-12.1) H 12/18/16 17:50 Consult Discharge Plan - Plan Referrals: Omar Medrano MD [Primary Care Provider] - 12/24/16 4:15 pm
[2016-12-19] MEDS ORDERED: *HR* HYDROcodone/Acet 5/325 mg TABLET PO PRN (17:34)
[2016-12-19] MEDS ORDERED: *HR* Morphine 2 MG/ML SYRINGE IVP PRN (17:34)
[2016-12-19] MEDS: Famotidine 20 MG TABLET PO SCH (20:19)
[2016-12-20 05:46] LABS: Basophils % 0.3 %; Eosinophils # 0.1 K/mcL (0.0-0.6); Eosinophils % 1.6 %; Hematocrit 35.5 % (35.3-44.9); Hemoglobin 11.9 g/dL (11.5-15.4); Immature Granulocytes % 0.6 % (0-4); Lymphocytes # 2.9 K/mcL (0.6-4.6); Lymphocytes % 31.9 %; Mean Corpuscular HGB Conc 33.5 g/dL (31.6-35.5); Mean Corpuscular Hemoglobin 31.1 pg (28.0-33.3); Mean Corpuscular Volume 92.7 fL (83.0-100.0); Mean Platelet Volume 10.7 fL (9.4-12.4); Monocytes # 0.7 K/mcL (0.0-1.3); Neutrophils # 5.2 K/mcL (1.6-8.9); Platelet Count 191 K/mcL (140-400); Red Blood Count 3.83 M/mcL (3.82-4.97); Red Cell Distribution Width 13.2 % (11.5-14.5); Segmented Neutrophils % 57.6 %
[2016-12-20 05:57] LABS: BUN/Creatinine Ratio 15 (6-26); Blood Urea Nitrogen 15 mg/dL (7-20); Calcium 9.3 mg/dL (8.6-10.8); Carbon Dioxide 25 mEq/L (19-29); Chloride 111 mEq/L (98-109); Glucose 115 mg/dL (70-99); Osmolality,Calculated 294 (280-300); Potassium 4.1 mEq/L (3.5-4.5); Sodium 141 mEq/L (136-145); eGFR For African Americans > 60 (> 60); eGFR For Non-African Americans 57 (> 60)
[2016-12-20] MEDS: *HR* Enoxaparin 40 MG/0.4 ML SYRINGE SQ SCH (06:29)
[2016-12-20 07:20] VITALS: BP 123/70
[2016-12-20] MEDS: Insulin LISPRO 300 UNITS/3 ML VIAL SQ SCH (07:59)
[2016-12-20] MEDS: *HR* LORazepam 0.5 MG TABLET PO SCH (08:11)
--- NOTE | 2016-12-20 09:11 | Cardiology Progress Note ---
Date of Encounter: 12/20/16 Time of Encounter: 08:30 Assessment and Plan (1) Left ventricular outflow tract obstruction Current Visit: Yes Status: Acute TTE shows hypertrophic cardiomyopathy with LVOT obstruction at rest. TTE: EF 70%, hyperdynamic LV systolic function with near cavity obliteration. Severe basal septal hypertrophy (2.1cm) with LVOT obstruction at rest, peak velocity 53 mmHG. Hyperdynamic RV systolic function. ADDISON of MV with mild MR. IVC is small. 24 hour telemetry review shows NSR with Avg HR 87 bpm. No VT, bradycardia, no SVT. Patient recieved IV hydration and beta-alonso. Avoid diuretic use. Symptoms improved. Out-pt f/u with primary community development aide Dr. Spears in 1-2 weeks will be coordinated by [facility]. Consider repeat TTE in out-pt setting. Cardiology will sign off. Call with questions. (2) Hypertrophic cardiomyopathy Current Visit: Yes Status: Acute Discussion w patient/family: The assessment and plan as outlined above was discussed with the patient and/or family members who expressed understanding and agreement. All questions were answered. Thank you for involving us in the care of your patient. Please call with any questions. Subjective Principal diagnosis: HCMP, basal septal hypertrophy, LVOT obstruction. Interval history: Ms. Anthony reports that she feels better. Overall symptoms have improved. Mild palpitations overnight. Objective Vital Signs, Last 4 Hours Temp Pulse Resp BP Pulse Ox 12/20/16 08:03 16 97 12/20/16 07:18 98.0 F 76 12 123/70 97 General: Conversant, No Apparent Distress HEENT: Atraumatic, Normocephaly, Mucus Membranes Moist Neck: No JVD, Normal carotid pulses Cardiac: Reg Rate and Rhythm, Normal S1 and S2, Other (3/6 systolic murmur.) Lungs: Normal Breath Sounds, No Wheeze, Rales, Rhonchi Neuro: Alert and responsive, No focal deficits noted Abdomen: Soft, Non-Tender Skin: No rashes noted on visualized skin Musculoskeletal: No Chest Wall Tenderness Extremities: No Clubbing, No Cyanosis, No Edema, Normal Pulses Results 12/20/16 05:09 12/20/16 05:09 Lab Results 12/20/16 12/20/16 05:09 05:09 WBC 9.0 Hgb 11.9 Hct 35.5 Plt Count 191 Sodium 141 Potassium 4.1 Chloride 111 H Carbon Dioxide 25 BUN 15 Creatinine 0.97 Glucose 115 H Calcium 9.3 - Imaging and Cardiology Echo: report reviewed - EKG Interpretation EKG results cardiology: personally reviewed (SR) - VTE Documentation of Mechanical Device: Graduated compression elastic hosiery Consult Discharge Plan - Plan Referrals: Omar Medrano MD [Primary Care Provider] - 12/24/16 4:15 pm
--- NOTE | 2016-12-20 10:35 | Discharge Summary ---
Date of Encounter: 12/20/16 Time of Encounter: 09:30 - Discharge Diagnosis (1) Chest pain Priority: Primary Status: Resolved Qualifiers: Chest pain type: precordial pain Qualified Code(s): R07.2 - Precordial pain (2) Left ventricular outflow tract obstruction Priority: Primary Status: Acute Comments: As noted on echocardiogram. Cardiology brought on board and have recommended hydration and have started her on beta alonso therapy. She was observed overnight on new medication without incident. Chest pain resolved on day of discharge. (3) Hypertrophic cardiomyopathy Priority: Primary Status: Acute (4) Palpitations Priority: Primary Status: Resolved (5) S/P cervical spinal fusion Priority: Secondary Status: Chronic (6) Abnormal urinalysis Priority: Primary Status: Ruled-out Comments: UCX negative (7) Type 2 diabetes mellitus Priority: Secondary Status: Chronic Comments: Controlled with a recent A1c of 5.7%. Follow-up outpatient Qualifiers: Diabetes mellitus complication status: without complication Diabetes mellitus longterm insulin use: without technician terminal and repeater use Qualified Code(s): E11.9 - Type 2 diabetes mellitus without complications (8) Hypertension Priority: Secondary Status: Chronic Comments: Controlled, follow-up outpatient Qualifiers: Hypertension type: essential hypertension Qualified Code(s): I10 - Essential (primary) hypertension (9) CKD (chronic kidney disease) stage 3, GFR 30-59 ml/min Priority: Secondary Status: Chronic Comments: Mild acute kidney injury overnight, gentle IV fluids, resolved. (10) Leukocytosis Priority: Primary Status: Resolved Comments: Suspect stress related secondary to recent surgery. Resolved (11) DVT prophylaxis Priority: Primary Status: Acute Comments: Subcutaneous Lovenox while admitted - Discharge Medications Prescriptions: Metoprolol [Lopressor] 25 mg PO BID #60 tab Home Medications: Albuterol Sulfate [Proair Hfa] 2 puff IH Q4H PRN 12/11/16 [History] Cetirizine HCl [Zyrtec] 10 mg PO DAILY 12/11/16 [History] GlipiZIDE XL (24 HR) [Glucotrol XL] 2.5 mg PO 0800 12/11/16 [History] LORazepam [Ativan] 0.5 mg PO BID 12/11/16 [History] Losartan [Cozaar] 25 mg PO DAILY 12/11/16 [History] Pantoprazole Sodium 40 mg PO BID 12/11/16 [History] Ranitidine HCl [Acid K 9 Police Officer] 150 mg PO HS 12/11/16 [History] Metoprolol [Lopressor] 25 mg PO BID #60 tab 12/20/16 [Rx] Allergies/Adverse Reactions: Allergies Beclomethasone [From Qvar] Allergy (Verified 12/18/16 20:12) Rash Hydromorphone [From Dilaudid] Allergy (Verified 12/18/16 20:12) Confusion Sulfa (Sulfonamide Antibiotics) Allergy (Verified 12/18/16 20:12) Rash naproxen Adverse Reaction (Verified 12/18/16 20:12) Gastrointestinal Upset Oxytetracycline Adverse Reaction (Verified 12/18/16 20:12) Gastrointestinal Upset prednisone Adverse Reaction (Verified 12/18/16 20:12) Chest Pain trazodone Adverse Reaction (Verified 12/18/16 20:12) See Comments "felt weird" Procedures/tests Complete & Pending: Procedures Performed prior 72 hours Category Date Time Status NM sascha perf SPECT single [NM] Routine Exams 12/18/16 21:43 Taken ECG 12 lead ECG [ECG] AM 0600 Y 12/19/16 06:00 Completed EV echocardiogram Routine Y 12/19/16 21:42 Completed Date of admission: 12/18/16 20:48 Primary care physician: Omar Medrano MD Consults: 12/19/16 09:22 Consult to Cardiology [CONS] Routine Comment: Consulting Provider: Cardiology [place] Reason for Consult: Abnormal ECHO Time Notified: 09:22 Call Completed: Yes Discharging clinician: Mireille Blackwood Anticipated date of discharge: 12/20/16 - Patient Status Disposition: Home, Self-Care Condition: Good Functional capacity at discharge: independent ambulation Overall status at discharge: patient is back to baseline - Discharge Instructions Follow Up With: Omar Medrano MD [Primary Care Provider] - 12/24/16 4:15 pm Jean Carlos Spears MD [Partnered Physician] - Additional Instructions: Follow-up with primary care provider as scheduled. Follow-up with Dr. Spears in 1-2 weeks - Diet and Activity Activity: increase activity as tolerated, return to work once cleared by your PCP/specialist Diet: diabetic diet Hospital course: Ms. Anthony is a 66 year old female with past medical history of hypertension, controlled diabetes, sleep apnea, GERD, anterior spinal fusion of C4-C6 with discectomy per Dr. Sanchez last week. Patient presented to the emergency department chief complaint of palpitations and chest pain. Patient stating she had chest tightness, shortness of breath, and palpitations on and off for several months but she reports on the day prior to presentation that her symptoms started to be on and off and then on the day of presentation, she endorsed chest tightness, occasional shortness of breath, and palpitations associated with sharp pain in her chest as well as diaphoresis. Patient also endorsed occasional lightheadedness and nausea without vomiting. Patient stating she is still wearing a c-collar with ambulation after her surgery and states that she felt as if the pressure on her chest from her c-collar could be contributing to her chest pain. Patient follows with Dr. Spears outpatient. Workup in the emergency department unremarkable. No acute ECG changes. Chest x -ray negative. Mild leukocytosis initially noted. Patient was admitted to the hospitalist service for further evaluation and management. Patient had an abnormal urinalysis but denied dysuria. Urine culture was obtained and was negative. No other signs of infection, suspect mild leukocytosis, that resolved prior to discharge, was likely stress related secondary to her recent surgery. Patient had an echocardiogram and a stress test ordered however after the abnormal echocardiogram results were obtained, the stress test was canceled and cardiology was brought on board. The echocardiogram revealed an ejection fraction of 70% with hyperdynamic systolic function with near cavity obliteration with an LVOT obstruction. Cardiology started the patient on a beta alonso and recommended aggressive hydration. She was given IV fluids. She initially had an acute kidney injury superimposed on her chronic kidney disease stage III that resolved prior to discharge. She was observed overnight on this new medication and tolerated it well. On the discharge, her chest pain and her palpitations had resolved. She was tolerating a regular diet. Cardiology also recommended avoiding diuretics-patient is not on diuretics at this time. She was discharged home in stable condition with close outpatient follow-up recommended. ITS Impressions Chest X-Ray 12/18/16 17:28 IMPRESSION: No acute cardiopulmonary disease. D/ / Westley Ku MD / Westley Ku MD Interpreting Provider: Westley Ku MD Echocardiogram impressions: LVEF 70%. Hyperdynamic LV systolic function with near cavity obliteration. There is a severe basal septal hypertrophy with an LVOT obstruction at rest, peak velocity 53 mmHg. Hyperdynamic RV systolic function. Systolic anterior motion of the mitral valve is noted with mild mitral regurgitation. No pulmonary hypertension. IVC is small in size. - Time Spent with Patient Total time spent providing and/or coordinating discharge services: - Constitutional Vitals: Temp Pulse Resp BP Pulse Ox 98.0 F 76 16 123/70 97 12/20/16 07:18 12/20/16 07:18 12/20/16 08:03 12/20/16 07:18 12/20/16 08:03 General appearance: Present: A&O X 3, pleasant, no acute distress, answers questions appropriately - Head Head exam: Present: atraumatic, normocephalic - Eye Eye exam: Present: PERRL, conjuntiva pink, sclera anicteric Pupils: Present: PERRL - Neck Neck exam general surgery: Present: tenderness, supple, trachea midline. Absent : lymphadenopathy Additional comments: surgical incision - Respiratory Respiratory exam: Present: CTAB. Absent: accessory muscle use, rales, respiratory distress, rhonchi, wheezes - Cardiovascular Cardiovascular exam: Present: RRR, +S1, +S2. Absent: diastolic murmur, gallop, rubs, systolic murmur - GI/Abdominal GI/Abdominal exam: Present: normal bowel sounds, soft, no peritoneal signs. Absent: distended, tenderness - Extremities Exam Extremities exam: Present: warm, radial pulses palpable and symetrical. Absent : calf tenderness, cyanotic, pedal edema - Neurological Exam Neurological exam: Present: alert, CN II-XII intact, normal gait, oriented X3, no focal deficits, strengths equal and symetr throughout. Absent: pronater drift, facial droop, speech deficit - Skin Skin exam: Present: dry, intact, normal color, warm - VTE Documentation of Mechanical Device: Graduated compression elastic hosiery
== END 2016-12-20 12:03 | disposition home or self-care (01) ==
LOC: EMEROO 17:02 → 3BNU 17:02
PROVIDERS: ADMIT Internal Medicine; ATTEND Nurse Practitioner Family

== ENCOUNTER 2017-11-25 06:28 | Inpatient (IN) ==
[2017-11-25] MEDS ORDERED: Albuterol 2.5 MG/3 ML NEBULIZER IH ONE ×2 (06:53→10:19)
[2017-11-25] MEDS ORDERED: CeFAZolin Syr 2,000MG/20 ML 2,000 MG/20 ML SYRINGE IVPB ONE (06:53)
--- NOTE | 2017-11-25 07:01 | Anesthesia Evaluation PreOp ---
Date of Encounter: 11/25/17 Time of Encounter: 06:45 - Past History Planned Operation: multi level lumbar laminectomy Cardiac History: HTN, Other (Severe hypertrophic obstructive cardiomyopathy. ECHO 70%, near obstruction of cardiac output with tachycardia. 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 Other Medical History: Diabetes Type II, GERD (gastroparesis secondary to diabetes mellitus) Anesthesia History: No Prior Anesthetic Complications, Past Anesthesia Alcohol Use: none Drug use: none Medications and Allergies Albuterol Sulfate [Proair Hfa] 2 puff IH Q4H PRN 12/11/16 [History] Cetirizine HCl [Zyrtec] 10 mg PO DAILY 12/11/16 [History] GlipiZIDE XL (24 HR) [Glucotrol XL] 2.5 mg PO 0800 12/11/16 [History] LORazepam [Ativan] 0.5 mg PO BID 12/11/16 [History] Losartan [Cozaar] 25 mg PO DAILY 12/11/16 [History] Pantoprazole Sodium 40 mg PO BID 12/11/16 [History] Ranitidine HCl [Acid Polishing Machine Tender] 150 mg PO HS 12/11/16 [History] Metoprolol [Lopressor] 25 mg PO BID #60 tab 12/20/16 [Rx] 3 Allergy/AdvReac Type Severity Reaction Status Date / Time Beclomethasone [From Qvar] Allergy Rash Verified 11/20/17 09:55 Sulfa (Sulfonamide Allergy Rash Verified 11/20/17 09:55 Antibiotics) Hydromorphone [From Dilaudid] AdvReac "felt like Verified 11/20/17 09:55 I was dying" - light headed naproxen AdvReac Gastrointestinal Verified 11/20/17 09:55 Upset Oxytetracycline AdvReac Gastrointestinal Verified 11/20/17 09:55 Upset prednisone AdvReac Chest Pain Verified 11/20/17 09:55 trazodone AdvReac "felt Verified 11/20/17 09:55 weird" - Meds/Allergy Pre-op Review Medications Reviewed: Yes Allergies Reviewed: Yes Beta Blockers on Current Med List: Yes ([id number]) Anesthesia Results - Imaging Additional studies: Laboratory Tests 12/20/16 10/23/17 10/23/17 07:41 09:58 09:58 WBC Hgb Hct Plt Count Sodium Potassium Chloride Carbon Dioxide BUN Creatinine Glucose 161 H POC Glucose 119 H Hemoglobin A1c 7.1 H 11/20/17 11/20/17 10:08 10:08 WBC 11.8 H Hgb 14.5 Hct 42.8 Plt Count 260 Sodium 138 Potassium 4.6 Chloride 105 Carbon Dioxide 28 BUN 18 Creatinine 1.08 Glucose POC Glucose Hemoglobin A1c Anesthesia Exam Weight: 104 kg BMI 40 NPO (# of Hours): over 8 hours - HEENT Pupil (Motor): Pupils equal Mallampati: II Teeth: Normal Oral Opening: Greater than 3 - Cardiac Rhythm: Regular Murmur: None - Pulmonary Breath Sounds: bilateral Clear Respiratory Effort: Symmetrical Anesthesia Assess/Plan ASA Score: 3 Modified Brocton Scale for Level of Consciousness: Cooperative, oriented, and tranquil Anesthetic Plan: General Monitoring Plan: Standard Monitors Recovery Plan: PACU (Discussed GA, risks. Agreed to proceed. Patient at moderately increased anesthesia risk due to her multiple comorbidities. She is aware and agrees to proceed.)
[2017-11-25] MEDS ORDERED: Acetaminophen IV 1,000 MG/100 ML INFUS..BTL IVPB ONE (07:08)
[2017-11-25] MEDS ORDERED: Gabapentin 300 MG CAPSULE PO ONE (07:08)
[2017-11-25] MEDS ORDERED: *HR* Propofol 200 MG/20 ML VIAL IVP ONE (07:09)
[2017-11-25] MEDS ORDERED: Lidocaine -MPF 4% 5 ML AMPUL ONE (07:09)
[2017-11-25] MEDS ORDERED: *HR* FentaNYL (PF) 100 MCG/2 ML VIAL ONE (07:09)
[2017-11-25] MEDS ORDERED: *HR* Succinylcholine 200 MG/10 ML VIAL IVP ONE (07:09)
[2017-11-25] MEDS ORDERED: Lidocaine -MPF 2% 2 ML VIAL ONE (07:09)
[2017-11-25] MEDS ORDERED: Ondansetron 4 MG/2 ML VIAL ONE (07:09)
[2017-11-25] MEDS ORDERED: Dexamethasone 4 MG/ML VIAL ONE (07:09)
[2017-11-25] MEDS ORDERED: *HR* PHENYLEPHRINE 1,000 MCG/10 ML SYRINGE IVP ONE ×6 (07:10→10:50)
[2017-11-25] MEDS ORDERED: *HR* Remifentanil 1 MG VIAL IVP ONE ×2 (07:15→10:24)
[2017-11-25] MEDS ORDERED: *HR* Etomidate 40 MG/20 ML VIAL IVP ONE (07:17)
[2017-11-25] MEDS ORDERED: *HR* Rocuronium Bromide 50 MG/5 ML VIAL ONE (07:19)
[2017-11-25] MEDS ORDERED: Neostigmine Methylsulfate 3 MG/3 ML SYRINGE ONE (07:20)
[2017-11-25] MEDS: Ringers Solution, Lactated 1,000 ML IVC SCH ×3 (07:22→18:55)
--- NOTE | 2017-11-25 07:44 | History & Physical Report ---
Date of Encounter: 11/25/17 Time of Encounter: 07:43 24 Hour HP Update - Instructions Instructions: If the History and Physical is less than 30 days old and was completed prior to A.M. admission and or procedure and has NOT been updated on calendar day of procedure please complete this update prior to performing procedure. - Update Patient reports changes in Medical Condition: No Changes in examination, assessment, or condition: No Changes in Medication: No Preop tests/diagnostics Reviewed: Yes Pre-Op MRSA Screen: Negative Surgery Remains Indicated: Yes Consent for Planned Operative Procedure(s) Verified: Yes - Pre-Operative Checklist Preoperative Checklist Indicated: No Prophylactic Antibiotic Ordered: Yes Home Medications Include Beta Justin: Yes Beta Justin Taken Today (Day of Surgery): No Beta Justin Taken Yesterday (Day Prior to Surgery): Yes Is VTE Prophylaxis Indicated?: Yes
[2017-11-25] MEDS ORDERED: Bacitracin 50,000 UNIT, Polymyxin B Sulfate 500,000 UNIT, Sodium Chloride IRRigation 1,... IR ONE (07:45)
[2017-11-25] MEDS ORDERED: *HR* Promethazine 25 MG/ML VIAL IVP PRN (10:19)
[2017-11-25] MEDS ORDERED: *HR* Meperidine 25 MG/ML SYRINGE IVP PRN (10:19)
[2017-11-25] MEDS ORDERED: *HR* Labetalol 20 MG/4 ML SYRINGE IVP PRN (10:19)
--- NOTE | 2017-11-25 11:34 | Orthopedic Operative Note ---
Date of procedure: 11/25/17 Pre-op diagnosis: Spondylolisthesis, lumbar stenosis, lumbar radiculopathy Post-op diagnosis: same Operation/Findings: Posterior lumbar interbody fusion L3-L5: The patient successfully underwent general endotracheal anesthesia. The patient was given antibiotics prior to the start of the procedure. Compression boots and stockings were used for deep vein thrombosis prophylaxis. A Parra catheter was placed. Leads for neuro monitoring were placed on the upper and lower extremities. This included the cranium. The neuro monitoring personnel confirmed there were satisfactory readings prior to the start of the procedure. The patient was turned prone on the Raghu table. The back was prepped and draped in the usual sterile fashion. An incision was was marked and centered over the involved levels in the mid line. The incision was deepened through the lumbar fascia. Bovie cautery and Gomez elevators were used to reflect the paraspinal musculature at the lateral extent of the transverse processes of the involved levels. Precious clamps were placed over the spinous processes. An intraoperative lateral fluoroscopy graft was obtained. A conversation was held between the surgeon and radiologist and both confirmed we had the correct operative levels. We then placed pedicle screws in standard fashion with the aid of fluoroscopy and anatomic landmarks. Briefly a starter awl was used. A gearshift was subsequently used to enter the pilot can router hole via a transpedicular route into the vertebral body. The pilot can router hole was tapped with an undersized instrument, and subsequently 6.5 x 40 mm pedicle screws were placed bilaterally at the indicated levels. The screws were tested with the aid of the neurologic monitoring staff via pedicle screw stimulation. All reading suggested there was no significant cortical wall breech. The screws were also evaluated fluoro - graphically and appeared to be in satisfactory position. We then turned our attention to the decompression portion of the procedure. We removed the supraspinous and interspinous ligaments and subsequently the insertion of the ligamentum flavum on the undersurface of the proximal lamina was dislodged with a curette. We then removed the ligamentum flavum as well as undercut the facets at this level to decompress the lateral recesses. We also performed a laminectomy. After the decompression which was over and above that which was required to place the interbody graft, the foramen and traversing roots at this level were found to be free and patent. We also took part of the medial facet in order to aid in the decompression. We then protected the neural elements including the thecal sac and traversing nerve root on the right with a dural retractor. We made an annulotomy into the disc space and then removed disc material using lPituitary instruments. We trialed various size grafts after the endplates were prepared for graft insertion. A 10 x 26 enter body graft fit well within the disc space. We obtained some bone from the posterior superior iliac spine through us a separate incision and combined with this with the bone which we had saved from the laminectomy portion of the procedure. This autograft bone was first placed in the anterior portion of the disc space and additional bone was placed within the interbody graft spacer. We then placed the interbody graft spacer obliquely across the disc space towards the midline while protecting the neural elements with a root retractor. When the graft was found to be in satisfactory position the jewel inserter was removed. We then copiously irrigated the wound. We then decorticated the transverse processes as well as the facet joints of the involved levels to aid in the posterolateral fusion. We placed autograft bone in the lateral gutters over these regions. We then placed rods within the screw heads of the involved levels and first locked the distal screws and then subsequently locked the proximal screws so as to improve and reduce the spondylolisthesis previously seen. We then closed the wound in layers with 1 Vicryl for the fascia, 2-0 Vicryl. Subcutaneous tissue, and Dermabond was used for skin closure. Sterile dressings were placed over the wound. The patient was turned supine on a hospital bed and extubated. All sponge instruments and needle counts were correct at the end of the procedure. The patient tolerated the procedure well without complications. Anesthesia: GETA Surgeon: Vahid Sanchez Jr Was there an shampoo assistant present: No Estimated blood loss (cc): 175 Specimen: None Condition: stable Disposition: PACU
[2017-11-25] MEDS: *HR* Morphine 2 MG/ML SYRINGE IVP PRN ×4 (11:55→12:10)
--- NOTE | 2017-11-25 12:37 | Anesthesia Evaluation Post Op ---
Date of Encounter: 11/25/17 Time of Encounter: 12:30 - Vital Signs Vital Signs: Selected Entries 11/25/17 12:17 11/25/17 12:27 Temperature 97.6 F Pulse Rate 75 Respiratory Rate 15 Blood Pressure 126/55 O2 Sat by Pulse Oximetry 98 - Lungs Lungs: Clear Ascult./Percussion - Airway Airway: Non-obstructed - Cardiovascular Regular Rate - Mental Status Mental Status: Alert & Oriented, Answers Appropriately - Nausea Vomiting Nausea Vomiting: Not Present - Hydration Hydration: NPO - Discharge PostOp Status: Transfer Patient to floor
[2017-11-25] MEDS ORDERED: Naloxone 0.4 MG/ML INJ IVP PRN (13:15)
[2017-11-25] MEDS ORDERED: Acetaminophen 325 MG TABLET PO PRN (13:15)
[2017-11-25] MEDS ORDERED: Ondansetron 4 MG/2 ML VIAL IVP PRN (13:15)
--- NOTE | 2017-11-25 13:20 | Anesthesia Evaluation Post Op ---
Date of Encounter: 11/25/17 Time of Encounter: 13:20 - Vital Signs Vital Signs: Selected Entries 11/25/17 12:47 Temperature 97.9 F Pulse Rate 76 Respiratory Rate 15 Blood Pressure 116/51 O2 Sat by Pulse Oximetry 95 - Lungs Lungs: Clear Ascult./Percussion - Airway Airway: Non-obstructed - Cardiovascular Regular Rate - Mental Status Mental Status: Alert & Oriented, Answers Appropriately - Nausea Vomiting Nausea Vomiting: Not Present - Hydration Hydration: NPO - Discharge PostOp Status: Transfer Patient to floor
[2017-11-25] MEDS: *HR* HYDROcodone/Acet 5/325 mg TABLET PO PRN ×2 (13:34→21:47)
[2017-11-25] MEDS ORDERED: D5% in Water 1,000 ML IVC PRN (18:30)
[2017-11-25] MEDS ORDERED: *HR* Dextrose 50 % in Water (Syg) 50 ML SYRINGE IVP PRN (18:30)
[2017-11-25] MEDS ORDERED: Dextrose Gel 15 GM/37.5 ML TUBE PO PRN ×2 (18:30)
[2017-11-25] MEDS: *HR* OxyCODONE Immed Rel 5 MG TABLET PO PRN (18:55)
[2017-11-25] MEDS: *HR* LORazepam 0.5 MG TABLET PO SCH (21:46)
[2017-11-25] MEDS: *HR* GlipiZIDE XL (24 HR) 2.5 MG TABLET PO SCH (21:46)
[2017-11-25] MEDS: SULINDAC 150 MG PO SCH (21:47)
[2017-11-25] MEDS: Insulin LISPRO 300 UNITS/3 ML VIAL SQ SCH (21:54)
[2017-11-26] MEDS: *HR* OxyCODONE Immed Rel 5 MG TABLET PO PRN ×3 (01:41→19:45)
[2017-11-26 01:58] LABS: BUN/Creatinine Ratio 16 (6-26); Blood Urea Nitrogen 14 mg/dL (8-23); Calcium 8.3 mg/dL (8.6-10.3); Carbon Dioxide 19 mEq/L (23-29); Chloride 109 mEq/L (98-107); Glucose 171 mg/dL (70-105); Osmolality,Calculated 291 (280-300); Potassium 4.3 mEq/L (3.5-5.1); Sodium 138 mEq/L (136-145); eGFR For African Americans > 60 (> 60); eGFR For Non-African Americans > 60 (> 60)
[2017-11-26] MEDS: Ringers Solution, Lactated 1,000 ML IVC SCH (04:21)
[2017-11-26] MEDS: *HR* HYDROcodone/Acet 5/325 mg TABLET PO PRN ×3 (05:20→23:59)
--- NOTE | 2017-11-26 08:26 | Orthopedics Progress Note ---
Date of Encounter: 11/26/17 Time of Encounter: 08:26 - Assessment and Plan (1) Spondylolisthesis Current Visit: Yes Status: Chronic Qualifiers: Spinal region: lumbar Qualified Code(s): M43.16 - Spondylolisthesis, lumbar region (2) Lumbar radiculopathy Current Visit: Yes Status: Chronic (3) History of lumbar fusion Current Visit: Yes Status: Chronic (4) Status post lumbar spinal fusion Current Visit: Yes Status: Chronic Subjective Principal diagnosis: Spondylolisthesis, lumbar stenosis, lumbar radiculopathy Interval history: POD#1 Date of procedure: 11/25/17 Pre-op diagnosis: Spondylolisthesis, lumbar stenosis, lumbar radiculopathy Post-op diagnosis: same Operation/Findings: Posterior lumbar interbody fusion L3-L5 The patient complains of left thigh and left foot numbness. she states this is new since her procedure.. Afebrile vital signs are stable. Incision is clean dry and intact. Neurovascularly intact with regard to bilateral lower extremities. Fires all upper and lower extremity motor groups. Assessment: Stable postoperative. Plan: Reviewed postoperative restrictions and precautions. Patient verbalized understanding. Brace present and patient aware to apply with activity. Mobilize with therapy Continue analgesics as needed Discharge planning - awaiting therapy recommendations Radiographs pending We will continue to monitor her left leg complaints. Objective Vital signs: Vital Signs Temp Pulse Resp BP Pulse Ox 11/26/17 07:35 98.5 F 84 16 109/68 96 11/26/17 04:26 98.7 F 88 16 103/62 94 11/26/17 00:25 98.4 F 87 16 101/53 95 11/25/17 18:50 98.6 F 84 17 113/70 96 11/25/17 16:00 97.9 F 78 16 102/57 98 11/25/17 15:00 98.1 F 89 16 117/71 98 11/25/17 14:00 97.5 F L 73 16 109/73 97 11/25/17 13:30 97.9 F 79 16 104/67 95 11/25/17 13:00 97.4 F L 75 16 107/67 94 11/25/17 12:47 97.9 F 76 15 116/51 95 11/25/17 12:37 97.9 F 78 16 121/54 96 11/25/17 12:27 75 15 126/55 98 11/25/17 12:17 97.6 F 75 15 126/56 96 11/25/17 12:07 76 19 128/50 95 11/25/17 11:57 79 18 153/72 97 11/25/17 11:47 99.1 F 90 20 149/89 100 Intake and Output 11/25/17 11/26/17 11/26/17 23:59 07:59 15:59 Intake Total 700 / 700 1000 / 1000 Output Total 950 / 950 2300 / 2300 Balance -250 / -250 -1300 / -1300 Intake: IV Fluids 100 / 100 1000 / 1000 Lactated Ringers 1,000 ML @ 100 1000 / 1000 mls/hr IVC .Q10H PATRICIA Rx#: [id number] Ancef 2,000 MG In 0.9 % Sodium 100 / 100 Chloride 100 ML @ 200 mls/hr IVPB Q8HR PATRICIA Rx#:[id number] Oral 600 / 600 Output: Catheter 950 / 950 2300 / 2300 Other: # Voids 1 Blood Glucose* 215 148 - Labs CBC & BMP: 11/26/17 00:52 Labs: Abnormal lab results Chloride 109 mEq/L (98-107) H 11/26/17 00:52 Carbon Dioxide 19 mEq/L (23-29) L 11/26/17 00:52 Glucose 171 mg/dL (70-105) H 11/26/17 00:52 POC Glucose 171 mg/dL (70-99) H 11/25/17 16:22 Calcium 8.3 mg/dL (8.6-10.3) L 11/26/17 00:52 - VTE Documentation of Mechanical Device: Intermittent pneumatic compression device Consult Discharge Plan - Plan Referrals: Omar Medrano MD [Primary Care Provider] -
[2017-11-26] MEDS: Lactobacillus 1 EACH CAP.SPRINK PO SCH (08:46)
[2017-11-26] MEDS: Multivit/Ca/Min/Fe/FA 1 TAB TABLET PO SCH (08:46)
[2017-11-26] MEDS: *HR* GlipiZIDE XL (24 HR) 2.5 MG TABLET PO SCH ×2 (08:46→21:04)
[2017-11-26] MEDS: (Zinc Acetate [Galzin] 50 MG) PO SCH (08:46)
[2017-11-26] MEDS: *HR* LORazepam 0.5 MG TABLET PO SCH ×2 (08:46→21:04)
[2017-11-26] MEDS: SULINDAC 150 MG PO SCH ×2 (08:47→21:04)
[2017-11-26] MEDS: Insulin LISPRO 300 UNITS/3 ML VIAL SQ SCH ×4 (08:48→21:05)
[2017-11-26] MEDS ORDERED: Acetaminophen IV 1,000 MG/100 ML INFUS..BTL IVPB PRN (14:22)
[2017-11-26] MEDS ORDERED: diazePAM 5 MG TABLET PO PRN (14:23)
[2017-11-27] MEDS: *HR* OxyCODONE Immed Rel 5 MG TABLET PO PRN ×4 (03:34→18:12)
[2017-11-27] MEDS: Insulin LISPRO 300 UNITS/3 ML VIAL SQ SCH ×4 (09:38→22:00)
[2017-11-27] MEDS: Lactobacillus 1 EACH CAP.SPRINK PO SCH (09:43)
[2017-11-27] MEDS: *HR* LORazepam 0.5 MG TABLET PO SCH ×2 (09:43→20:13)
[2017-11-27] MEDS: Multivit/Ca/Min/Fe/FA 1 TAB TABLET PO SCH (09:43)
[2017-11-27] MEDS: *HR* GlipiZIDE XL (24 HR) 2.5 MG TABLET PO SCH ×2 (09:43→20:13)
[2017-11-27] MEDS: (Zinc Acetate [Galzin] 50 MG) PO SCH (09:54)
[2017-11-27] MEDS: SULINDAC 150 MG PO SCH ×2 (09:56→22:00)
--- NOTE | 2017-11-27 17:10 | Spine Progress Note ---
Date of Encounter: 11/27/17 Time of Encounter: 17:09 Subjective Principal diagnosis: Spondylolisthesis, lumbar stenosis, lumbar radiculopathy Interval history: The patient is without complaints. Afebrile vital signs are stable. Incision is clean dry and intact. Neurovascularly intact with regard to bilateral lower extremities. Fires all upper and lower extremity motor groups. Assessment : stable. Plan mobilize ,continue analgesics, discharge planning. Will give saline nasal spray. Objective Vital signs: Vital Signs Temp Pulse Resp BP Pulse Ox 11/27/17 14:55 112/70 11/27/17 11:45 94 16 107/70 97 11/27/17 08:00 97.9 F 90 17 139/77 99 11/27/17 05:22 99.7 F H 101 16 126/77 92 11/26/17 23:36 99.9 F H 102 18 137/73 93 11/26/17 19:47 98.6 F 105 18 141/72 97 Intake and Output 11/27/17 11/27/17 11/27/17 07:59 15:59 23:59 Intake Total 580 / 580 Balance 580 / 580 Intake: IV Fluids 100 / 100 Oral 480 / 480 Other: Meal Lunch Percent of Meal Consumed 5% # Voids 1 Blood Glucose* 137 - Labs CBC & BMP: 11/26/17 00:52 Labs: Abnormal lab results Chloride 109 mEq/L (98-107) H 11/26/17 00:52 Carbon Dioxide 19 mEq/L (23-29) L 11/26/17 00:52 Glucose 171 mg/dL (70-105) H 11/26/17 00:52 POC Glucose 137 mg/dL (70-99) H 11/27/17 11:40 Calcium 8.3 mg/dL (8.6-10.3) L 11/26/17 00:52 Consult Discharge Plan - Plan Referrals: Omar Medrano MD [Primary Care Provider] -
[2017-11-27] MEDS ORDERED: Saline Nasal Spray 44 ML BOTTLE NS PRN (17:19)
[2017-11-27] MEDS: *HR* HYDROcodone/Acet 5/325 mg TABLET PO PRN (20:15)
[2017-11-28] MEDS: *HR* OxyCODONE Immed Rel 5 MG TABLET PO PRN (04:10)
[2017-11-28] MEDS: *HR* HYDROcodone/Acet 5/325 mg TABLET PO PRN (06:46)
[2017-11-28] MEDS: Insulin LISPRO 300 UNITS/3 ML VIAL SQ SCH ×2 (08:11→11:32)
[2017-11-28] MEDS: Lactobacillus 1 EACH CAP.SPRINK PO SCH (08:22)
[2017-11-28] MEDS: *HR* LORazepam 0.5 MG TABLET PO SCH (08:22)
[2017-11-28] MEDS: *HR* GlipiZIDE XL (24 HR) 2.5 MG TABLET PO SCH (08:22)
[2017-11-28] MEDS: (Zinc Acetate [Galzin] 50 MG) PO SCH (08:22)
[2017-11-28] MEDS: SULINDAC 150 MG PO SCH (08:22)
[2017-11-28] MEDS: Multivit/Ca/Min/Fe/FA 1 TAB TABLET PO SCH (08:22)
[2017-11-28 11:18] VITALS: BP 119/75
--- NOTE | 2017-11-28 11:29 | Discharge Summary ---
Orders not resulted at time of discharge: Pending orders 11/25/17 08:32 XR fluoroscopy <1 hr [XR] Routine Date of Encounter: 11/28/17 Time of Encounter: 08:30 - Discharge Diagnosis (1) Spondylolisthesis Priority: Primary Status: Chronic Qualifiers: Spinal region: lumbar Qualified Code(s): M43.16 - Spondylolisthesis, lumbar region (2) Lumbar radiculopathy Priority: Primary Status: Chronic (3) History of lumbar fusion Priority: Primary Status: Chronic (4) Status post lumbar spinal fusion Priority: Primary Status: Acute - Hospital Course Hospital course: Ms. Anthony is a 67 year old female status post Date of procedure: 11/25/17 Pre-op diagnosis: Spondylolisthesis, lumbar stenosis, lumbar radiculopathy Post-op diagnosis: same Operation/Findings: Posterior lumbar interbody fusion L3-L5 The patient had an uneventful postoperative course. She does complain of some left thigh numbness and altered sensation however she states this is improved. She states her preoperative symptoms have resolved. Progressed from intravenous analgesic needs to oral analgesic needs only. Remained neurovascularly intact and mobilized satisfactorily. All intraoperative and/or postoperative radiographic studies were satisfactory. Patient is discharged with plan for rehabilitation and follow-up in 2 weeks post discharge on analgesic medication and patient's home medications. - Time Spent with Patient Total time spent providing and/or coordinating discharge services: - Discharge Medications Prescriptions: diazePAM [Valium] 5 mg PO Q8H PRN 7 Days #21 tablet PRN Reason: Spasms OxyCODONE Immed Rel [Roxicodone 5 MG] 5 mg PO Q6H PRN 7 Days #28 tablet PRN Reason: Severe Pain Home Medications: Albuterol Sulfate [Proair Hfa] 2 puff IH Q4H PRN 12/11/16 [History] GlipiZIDE XL (24 HR) [Glucotrol XL] 2.5 mg PO BID 12/11/16 [History] LORazepam [Ativan] 0.5 mg PO BID 12/11/16 [History] Pantoprazole Sodium 40 mg PO BID 12/11/16 [History] L. Acidophilus/Pectin, Moody [Acidophilus Probiotic Capsule] 1 cap PO DAILY 07/14 [History] Metoprolol Tartrate 50 mg PO 0600,1800 11/25/17 [History] Multivitamin [One Daily Multivitamin] 1 tab PO DAILY 11/25/17 [History] Sulindac 150 mg PO BID 11/25/17 [History] Zinc Acetate [Galzin] 50 mg PO DAILY 11/25/17 [History] Acetaminophen [Tylenol] 650 mg PO Q6HR PRN tablet 11/28/17 [Rx] Docusate [Colace] 100 mg PO BID capsule 11/28/17 [Rx] OxyCODONE Immed Rel [Roxicodone 5 MG] 5 mg PO Q6H PRN 7 Days #28 tablet [Rx] diazePAM [Valium] 5 mg PO Q8H PRN 7 Days #21 tablet 11/28/17 [Rx] Allergies/Adverse Reactions: 3 Allergy/AdvReac Type Severity Reaction Status Date / Time Beclomethasone [From Qvar] Allergy Rash Verified 11/25/17 07:35 Sulfa (Sulfonamide Allergy Rash Verified 11/25/17 07:35 Antibiotics) Hydromorphone [From Dilaudid] AdvReac "felt like Verified 11/25/17 07:35 I was dying" - light headed naproxen AdvReac Gastrointestinal Verified 11/25/17 07:35 Upset Oxytetracycline AdvReac Gastrointestinal Verified 11/25/17 07:35 Upset prednisone AdvReac Chest Pain Verified 11/25/17 07:35 trazodone AdvReac "felt Verified 11/25/17 07:35 weird" Date of admission: 11/25/17 12:55 Primary care physician: Omar Medrano MD Consults: 11/25/17 13:15 Consult to Occupational Therapy [CONS] Routine Comment: Evaluate, develop and implement POC Reason for Consult: Postoperative rehabilitation Does patient have active BEDREST order?: No Is patient medically & hemodynamically stable?: Yes Patient assessed for mobility or mobilized this visit?: No Consult to Physical Therapy [CONS] Routine Comment: Evaluate, develop and implement POC Reason for Consult: Postoperative rehabilitation Does patient have active BEDREST order?: No Is patient medically & hemodynamically stable?: Yes Patient assessed for mobility or mobilized this visit?: No Consult to Substitute Crossing Guard [CONS] Routine Reason for SW Consult: Postoperative rehabilitation Consult to Spine Navigator [CONS] [CONS] Routine - VTE Documentation of Mechanical Device: Intermittent pneumatic compression device Labs on day of discharge: Labs from last 24 hours 11/28/17 11/27/17 06:52 11:40 POC Glucose 98 137 H - Impressions ITS Impressions Lumbar Spine X-Ray 11/25/17 08:32 IMPRESSION: Posterior spinal fusion and discectomies of L3 through L5 with correction of previously seen L4-5 anterolisthesis. D/ / Chris Bhatt MD / Chris Bhatt MD Interpreting Provider: Chris Bhatt MD Lumbar Spine X-Ray 11/28/17 08:35 IMPRESSION: Postsurgical changes from L3-L4 posterior fusion. Alignment appears grossly anatomic. Mild degenerative changes without acute osseous abnormality. D/ / 11/28/2017 09:55:15 Unique Longo MD / key Interpreting Provider: Unique Longo MD - Patient Status Disposition: Home Health Service Condition: Good Functional capacity at discharge: uses cane/walker Overall status at discharge: patient is progressing back to baseline - Discharge Instructions Follow Up With: Omar Medrano MD [Primary Care Provider] - - Diet and Activity Activity: as per physical therapy Diet: advance to your usual diet
== END 2017-11-28 14:54 | disposition home health service (06) | DRG 460 ==
LOC: SAMDAY 06:28 → 3NENU 12:55
PROVIDERS: ADMIT Orthopaedic Surgery Orthopaedic Surgery of the Spine; ATTEND Orthopaedic Surgery Orthopaedic Surgery of the Spine

== ENCOUNTER 2019-07-29 14:46 | Inpatient (IN) ==
[2019-07-29] MEDS ORDERED: Ondansetron 4 MG/2 ML VIAL IVP PRN (17:22)
[2019-07-29] MEDS ORDERED: Naloxone 0.4 MG/ML INJ IVP PRN (17:22)
[2019-07-29] MEDS ORDERED: *HR* Dextrose 50 % in Water (Syg) 50 ML SYRINGE IVP PRN (17:24)
[2019-07-29] MEDS ORDERED: Dextrose Gel 15 GM/37.5 ML TUBE PO PRN ×2 (17:24)
[2019-07-29] MEDS ORDERED: D5% in Water 1,000 ML IVC PRN (17:24)
[2019-07-29] MEDS ORDERED: Ipratropium/Albuterol Neb 3 ML IH PRN (17:25)
[2019-07-29] MEDS: 0.9 % Sodium Chloride 1,000 ML IVC SCH (18:49)
[2019-07-29] MEDS: Insulin LISPRO 300 UNITS/3 ML VIAL SQ SCH ×2 (18:49→21:24)
[2019-07-29 19:54] LABS: Bacteria,Urine None Seen per hpf (None-Few); Hyaline Casts,Urine None Seen per lpf (None-Few); RBC,Urine 0-3 per hpf (0-3); Squamous Epithelial Cell,Urine Moderate per lpf (None-Few); WBC,Urine 0-3 per hpf (0-3)
[2019-07-29 20:26] LABS: Adenovirus Not Detected (Not Detect); Bordetella Pertussis Not Detected (Not Detect); Chlamydophila pneumoniae Not Detected (Not Detect); Coronavirus 229E Not Detected (Not Detect); Coronavirus HKU1 Not Detected (Not Detect); Coronavirus NL63 Not Detected (Not Detect); Coronavirus OC43 Not Detected (Not Detect); Human Metapneumovirus Not Detected (Not Detect); Human Rhinovirus/Enterovirus Not Detected (Not Detect); Influenza A Subtype 2009 H1 Not Detected (Not Detect); Influenza B Not Detected (Not Detect); Mycoplasma pneumoniae Not Detected (Not Detect); Parainfluenza Virus 1 Not Detected (Not Detect); Parainfluenza Virus 2 Not Detected (Not Detect); Parainfluenza Virus 3 Not Detected (Not Detect); Parainfluenza Virus 4 Not Detected (Not Detect); Respiratory Syncytial Virus Not Detected (Not Detect)
[2019-07-29] MEDS: Piperacillin/Tazobactam 3.375 GM in 0.9 % Sodium Chloride Mini Bag 100 ML IVPB SCH (21:23)
[2019-07-29] MEDS: Ipratropium/Albuterol Neb 3 ML IH SCH (22:09)
[2019-07-30] MEDS: Acetaminophen 325 MG TABLET PO PRN (00:38)
[2019-07-30] MEDS: Ipratropium/Albuterol Neb 3 ML IH SCH ×4 (03:20→22:41)
[2019-07-30 06:35] LABS: Hemoglobin 7.2 g/dL (11.5-15.4); Mean Corpuscular Volume 87.1 fL (83.0-100.0); Red Cell Distribution Width 13.5 % (11.5-14.5)
[2019-07-30 06:37] LABS: Hematocrit 21.7 % (35.3-44.9); Immature Platelets 1.4 % (1.1-6.1); Lymphocytes # 0.7 K/mcL (0.6-4.6); Mean Corpuscular HGB Conc 33.2 g/dL (31.6-35.5); Mean Corpuscular Hemoglobin 28.9 pg (28.0-33.3); Red Blood Count 2.49 M/mcL (3.82-4.97); White Blood Count 1.7 K/mcL (4.3-11.1)
[2019-07-30 07:02] LABS: BUN/Creatinine Ratio 16 (6-26); Blood Urea Nitrogen 15 mg/dL (8-23); Calcium 8.7 mg/dL (8.6-10.3); Carbon Dioxide 21 mEq/L (23-29); Chloride 111 mEq/L (98-107); Glucose 157 mg/dL (70-105); Magnesium 2.2 mg/dL (1.6-2.6); Osmolality,Calculated 292 (280-300); Phosphorous 4.2 mg/dL (2.7-4.5); Potassium 4.1 mEq/L (3.5-5.1); Sodium 139 mEq/L (136-145); eGFR For African Americans > 60 (> 60); eGFR For Non-African Americans 59 (> 60)
[2019-07-30 08:04] LABS: Platelet Count 45 K/mcL (140-400)
[2019-07-30 08:08] LABS: Monocytes # 0.2 K/mcL (0.0-1.3); Neutrophils # 0.9 K/mcL (1.6-8.9)
[2019-07-30 08:09] LABS: Platelet Estimate Marked Decrease (Normal); Toxic Granulation Present (Not Present)
[2019-07-30 08:10] LABS: Reactive Lymphocytes Present (Not Present)
[2019-07-30] MEDS: Piperacillin/Tazobactam 3.375 GM in 0.9 % Sodium Chloride Mini Bag 100 ML IVPB SCH ×2 (08:26→16:18)
[2019-07-30] MEDS: Insulin LISPRO 300 UNITS/3 ML VIAL SQ SCH ×4 (08:27→20:46)
[2019-07-30] MEDS ORDERED: Mirtazapine 15 MG TABLET PO PRN (10:22)
[2019-07-30] MEDS: Azithromycin 500 MG in 0.9 % Sodium Chloride 250 ML IVPB SCH (10:56)
[2019-07-30] MEDS: *HR* HYDROcodone/Acet 5/325 mg TABLET PO PRN (12:23)
[2019-07-30] MEDS ORDERED: 0.9 % Sodium Chloride 250 ML ONE (15:26)
[2019-07-30] MEDS: 0.9 % Sodium Chloride 1,000 ML IVC SCH (16:40)
[2019-07-30] MEDS: *HR* OxyCODONE Immed Rel 5 MG TABLET PO PRN (16:43)
[2019-07-30] MEDS ORDERED: Saline Nasal Spray 44 ML BOTTLE NS PRN (17:26)
[2019-07-30] MEDS: *HR* LORazepam 1 MG TABLET PO PRN (20:50)
[2019-07-31] MEDS: Acetaminophen 325 MG TABLET PO PRN (00:50)
[2019-07-31] MEDS: Piperacillin/Tazobactam 3.375 GM in 0.9 % Sodium Chloride Mini Bag 100 ML IVPB SCH ×3 (01:02→15:49)
[2019-07-31] MEDS: Ipratropium/Albuterol Neb 3 ML IH SCH ×4 (03:31→21:54)
[2019-07-31 05:30] LABS: Hemoglobin 6.9 g/dL (11.5-15.4); Immature Granulocytes % 0.6 % (0-4)
[2019-07-31 05:32] LABS: Eosinophils % 1.1 %; Hematocrit 20.6 % (35.3-44.9); Immature Platelets 1.3 % (1.1-6.1); Lymphocytes # 0.8 K/mcL (0.6-4.6); Lymphocytes % 44.9 %; Mean Corpuscular HGB Conc 33.5 g/dL (31.6-35.5); Mean Corpuscular Hemoglobin 29.4 pg (28.0-33.3); Mean Corpuscular Volume 87.7 fL (83.0-100.0); Mean Platelet Volume 9.9 fL (9.4-12.4); Monocytes % 1.7 %; Neutrophils # 0.9 K/mcL (1.6-8.9); Red Blood Count 2.35 M/mcL (3.82-4.97); Red Cell Distribution Width 13.7 % (11.5-14.5); Segmented Neutrophils % 51.7 %; White Blood Count 1.8 K/mcL (4.3-11.1)
[2019-07-31 05:38] LABS: Platelet Count 43 K/mcL (140-400)
[2019-07-31 05:48] LABS: BUN/Creatinine Ratio 19 (6-26); Blood Urea Nitrogen 17 mg/dL (8-23); Calcium 8.3 mg/dL (8.6-10.3); Carbon Dioxide 20 mEq/L (23-29); Chloride 111 mEq/L (98-107); Glucose 167 mg/dL (70-105); Osmolality,Calculated 287 (280-300); Potassium 4.1 mEq/L (3.5-5.1); Sodium 136 mEq/L (136-145); eGFR For African Americans > 60 (> 60); eGFR For Non-African Americans > 60 (> 60)
[2019-07-31 05:57] LABS: Platelet Estimate Decreased (Normal)
[2019-07-31 05:58] LABS: Reactive Lymphocytes Present (Not Present)
[2019-07-31] MEDS: Insulin LISPRO 300 UNITS/3 ML VIAL SQ SCH ×4 (08:19→20:28)
[2019-07-31] MEDS: Azithromycin 500 MG in 0.9 % Sodium Chloride 250 ML IVPB SCH (08:24)
[2019-07-31] MEDS: Multivit/Ca/Min/Fe/FA 1 TAB TABLET PO SCH (08:39)
[2019-07-31] MEDS: *HR* OxyCODONE Immed Rel 5 MG TABLET PO PRN ×2 (09:52→20:26)
[2019-07-31] MEDS ORDERED: 0.9 % Sodium Chloride 250 ML ONE (10:00)
[2019-07-31] MEDS: polyethylene glycoL 3350 17 GM POWD.PACK PO SCH (12:05)
[2019-07-31] MEDS: *HR* HYDROcodone/Acet 5/325 mg TABLET PO PRN (15:54)
[2019-07-31] MEDS: *HR* LORazepam 1 MG TABLET PO PRN (20:26)
[2019-08-01] MEDS: Acetaminophen 325 MG TABLET PO PRN ×2 (00:29→20:25)
[2019-08-01] MEDS: Piperacillin/Tazobactam 3.375 GM in 0.9 % Sodium Chloride Mini Bag 100 ML IVPB SCH ×4 (00:31→23:09)
[2019-08-01 03:33] LABS: Basophils % 0.5 %; Red Cell Distribution Width 13.6 % (11.5-14.5)
[2019-08-01 03:35] LABS: Eosinophils # 0.1 K/mcL (0.0-0.6); Eosinophils % 3.7 %; Hematocrit 22.9 % (35.3-44.9); Hemoglobin 7.7 g/dL (11.5-15.4); Immature Platelets 1.6 % (1.1-6.1); Lymphocytes # 0.7 K/mcL (0.6-4.6); Lymphocytes % 34.9 %; Mean Corpuscular HGB Conc 33.6 g/dL (31.6-35.5); Mean Corpuscular Hemoglobin 29.4 pg (28.0-33.3); Mean Corpuscular Volume 87.4 fL (83.0-100.0); Mean Platelet Volume 9.8 fL (9.4-12.4); Monocytes % 1.1 %; Neutrophils # 1.1 K/mcL (1.6-8.9); Platelet Count 49 K/mcL (140-400); Red Blood Count 2.62 M/mcL (3.82-4.97); Segmented Neutrophils % 59.8 %; White Blood Count 1.9 K/mcL (4.3-11.1)
[2019-08-01] MEDS: Ipratropium/Albuterol Neb 3 ML IH SCH ×4 (03:52→22:02)
[2019-08-01 03:53] LABS: BUN/Creatinine Ratio 23 (6-26); Blood Urea Nitrogen 22 mg/dL (8-23); Calcium 8.4 mg/dL (8.6-10.3); Carbon Dioxide 23 mEq/L (23-29); Chloride 108 mEq/L (98-107); Glucose 159 mg/dL (70-105); Osmolality,Calculated 283 (280-300); Potassium 4.8 mEq/L (3.5-5.1); Sodium 133 mEq/L (136-145); eGFR For African Americans > 60 (> 60); eGFR For Non-African Americans 58 (> 60)
[2019-08-01 04:05] LABS: Platelet Estimate Decreased (Normal)
[2019-08-01] MEDS: Insulin LISPRO 300 UNITS/3 ML VIAL SQ SCH ×4 (08:33→20:26)
[2019-08-01] MEDS: polyethylene glycoL 3350 17 GM POWD.PACK PO SCH (08:36)
[2019-08-01] MEDS: Multivit/Ca/Min/Fe/FA 1 TAB TABLET PO SCH (08:36)
[2019-08-01] MEDS: *HR* HYDROcodone/Acet 5/325 mg TABLET PO PRN ×2 (08:42→17:24)
[2019-08-01] MEDS: Azithromycin 500 MG in 0.9 % Sodium Chloride 250 ML IVPB SCH (08:55)
[2019-08-01] MEDS ORDERED: Bisacodyl 10 MG RECTAL SUPPOSITORY RC ONE (10:00)
[2019-08-01] MEDS: *HR* LORazepam 1 MG TABLET PO PRN (20:25)
[2019-08-02 03:48] LABS: Basophils % 0.7 %; Eosinophils % 1.4 %; Hematocrit 21.3 % (35.3-44.9); Immature Platelets 1.6 % (1.1-6.1); Lymphocytes # 0.6 K/mcL (0.6-4.6); Lymphocytes % 44.3 %; Mean Corpuscular HGB Conc 32.9 g/dL (31.6-35.5); Mean Corpuscular Hemoglobin 28.7 pg (28.0-33.3); Mean Corpuscular Volume 87.3 fL (83.0-100.0); Monocytes % 0.7 %; Neutrophils # 0.7 K/mcL (1.6-8.9); Red Blood Count 2.44 M/mcL (3.82-4.97); Red Cell Distribution Width 13.4 % (11.5-14.5); Segmented Neutrophils % 52.9 %; White Blood Count 1.4 K/mcL (4.3-11.1)
[2019-08-02 03:51] LABS: Platelet Count 49 K/mcL (140-400)
[2019-08-02] MEDS: Ipratropium/Albuterol Neb 3 ML IH SCH ×4 (04:00→22:36)
[2019-08-02 04:04] LABS: BUN/Creatinine Ratio 24 (6-26); Blood Urea Nitrogen 22 mg/dL (8-23); Calcium 8.3 mg/dL (8.6-10.3); Carbon Dioxide 25 mEq/L (23-29); Chloride 108 mEq/L (98-107); Glucose 147 mg/dL (70-105); Osmolality,Calculated 288 (280-300); Potassium 4.2 mEq/L (3.5-5.1); Sodium 136 mEq/L (136-145); eGFR For African Americans > 60 (> 60); eGFR For Non-African Americans > 60 (> 60)
[2019-08-02 04:32] LABS: Platelet Estimate Decreased (Normal)
[2019-08-02] MEDS: Piperacillin/Tazobactam 3.375 GM in 0.9 % Sodium Chloride Mini Bag 100 ML IVPB SCH ×3 (07:33→23:10)
[2019-08-02] MEDS: Multivit/Ca/Min/Fe/FA 1 TAB TABLET PO SCH (07:33)
[2019-08-02] MEDS: Insulin LISPRO 300 UNITS/3 ML VIAL SQ SCH ×4 (07:34→20:15)
[2019-08-02] MEDS: polyethylene glycoL 3350 17 GM POWD.PACK PO SCH (07:34)
[2019-08-02] MEDS: Acetaminophen 325 MG TABLET PO PRN (07:46)
[2019-08-02] MEDS ORDERED: 0.9 % Sodium Chloride 250 ML ONE ×2 (08:56→13:23)
[2019-08-02] MEDS ORDERED: Aminoglycoside Consult 1 EACH MC ONE (15:59)
[2019-08-02] MEDS: *HR* HYDROcodone/Acet 5/325 mg TABLET PO PRN (18:44)
[2019-08-02] MEDS: *HR* LORazepam 1 MG TABLET PO PRN (23:10)
[2019-08-03] MEDS: *HR* HYDROcodone/Acet 5/325 mg TABLET PO PRN (02:54)
[2019-08-03] MEDS: Ipratropium/Albuterol Neb 3 ML IH SCH ×3 (03:56→16:01)
[2019-08-03 04:02] LABS: Mean Platelet Volume 9.8 fL (9.4-12.4)
[2019-08-03 04:04] LABS: Basophils % 0.6 %; Eosinophils # 0.1 K/mcL (0.0-0.6); Eosinophils % 3.1 %; Hematocrit 23.3 % (35.3-44.9); Hemoglobin 7.7 g/dL (11.5-15.4); Immature Granulocytes % 1.2 % (0-4); Immature Platelets 0.8 % (1.1-6.1); Lymphocytes # 0.5 K/mcL (0.6-4.6); Lymphocytes % 32.5 %; Mean Corpuscular Hemoglobin 29.1 pg (28.0-33.3); Mean Corpuscular Volume 87.9 fL (83.0-100.0); Monocytes % 1.2 %; Red Blood Count 2.65 M/mcL (3.82-4.97); Red Cell Distribution Width 13.3 % (11.5-14.5); Segmented Neutrophils % 61.4 %; White Blood Count 1.6 K/mcL (4.3-11.1)
[2019-08-03 04:10] LABS: Platelet Count 58 K/mcL (140-400)
[2019-08-03 04:23] LABS: Large Platelets Present (Not Present); Platelet Estimate Decreased (Normal)
[2019-08-03 04:24] LABS: BUN/Creatinine Ratio 24 (6-26); Blood Urea Nitrogen 19 mg/dL (8-23); Calcium 8.3 mg/dL (8.6-10.3); Carbon Dioxide 24 mEq/L (23-29); Chloride 106 mEq/L (98-107); Glucose 184 mg/dL (70-105); Osmolality,Calculated 289 (280-300); Potassium 4.4 mEq/L (3.5-5.1); Sodium 136 mEq/L (136-145); eGFR For African Americans > 60 (> 60); eGFR For Non-African Americans > 60 (> 60)
[2019-08-03] MEDS: Multivit/Ca/Min/Fe/FA 1 TAB TABLET PO SCH (08:14)
[2019-08-03] MEDS: Piperacillin/Tazobactam 3.375 GM in 0.9 % Sodium Chloride Mini Bag 100 ML IVPB SCH (08:14)
[2019-08-03] MEDS: polyethylene glycoL 3350 17 GM POWD.PACK PO SCH (08:14)
[2019-08-03] MEDS: Insulin LISPRO 300 UNITS/3 ML VIAL SQ SCH ×2 (08:14→11:46)
[2019-08-03] MEDS ORDERED: 0.9 % Sodium Chloride 250 ML ONE (11:42)
[2019-08-03 15:57] VITALS: BP 154/74
== END 2019-08-03 16:00 | disposition home or self-care (01) | DRG 871 ==
LOC: 2ANU → SUATTDRO 16:07 → 2ANU 16:12
PROVIDERS: ADMIT Internal Medicine; ATTEND Internal Medicine

== ENCOUNTER 2019-08-08 13:45 | Inpatient (IN) ==
[2019-08-08] MEDS ORDERED: 0.9 % Sodium Chloride 1,000 ML ONE (14:47)
[2019-08-08] MEDS ORDERED: Water for inj. (sterile) 20 ML VIAL IV ONE (14:47)
[2019-08-08] MEDS ORDERED: 0.9 % Sodium Chloride 1,000 ML IV.SOLN ONE (14:47)
[2019-08-08] MEDS ORDERED: Water for inj. (sterile) 20 ML IV ONE (14:47)
[2019-08-08] MEDS ORDERED: Dextrose Gel 15 GM/37.5 ML TUBE PO PRN ×2 (22:44)
[2019-08-08] MEDS ORDERED: D5% in Water 1,000 ML IVC PRN (22:44)
[2019-08-08] MEDS ORDERED: *HR* Dextrose 50 % in Water (Syg) 50 ML SYRINGE IVP PRN (22:44)
[2019-08-08 22:57] LABS: Eosinophils % 1.4 %; Hematocrit 22.1 % (35.3-44.9); Hemoglobin 7.6 g/dL (11.5-15.4); Lymphocytes # 0.7 K/mcL (0.6-4.6); Lymphocytes % 48.3 %; Mean Corpuscular HGB Conc 34.4 g/dL (31.6-35.5); Mean Corpuscular Hemoglobin 29.6 pg (28.0-33.3); Mean Platelet Volume 9.9 fL (9.4-12.4); Monocytes % 2.1 %; Platelet Count 31 K/mcL (140-400); Red Blood Count 2.57 M/mcL (3.82-4.97); White Blood Count 1.5 K/mcL (4.3-11.1)
[2019-08-08 22:58] LABS: Platelet Estimate Decreased (Normal)
[2019-08-08] MEDS ORDERED: Insulin LISPRO 300 UNITS/3 ML VIAL SQ SCH (23:00)
[2019-08-08] MEDS: Acetaminophen 325 MG TABLET PO PRN (23:16)
[2019-08-08] MEDS: *HR* Heparin 5,000 UNIT/ML VIAL SQ SCH (23:23)
[2019-08-08] MEDS: Insulin LISPRO 300 UNITS/3 ML VIAL SQ SCH (23:23)
[2019-08-09] MEDS ORDERED: Cefepime HCl 2,000 MG in Water for inj. (sterile) 20 ML IVP SCH
[2019-08-09 00:56] LABS: Alanine Aminotransferase 11 Units/L (7-52); Albumin 3.2 g/dL (3.5-5.7); Albumin/Globulin Ratio 1.1 (1.1-2.2); Alkaline Phosphatase 37 Units/L (34-104); Aspartate Amino Transferase 14 Units/L (13-39); BUN/Creatinine Ratio 17 (6-26); Bilirubin,Direct 0.3 mg/dL (0.0-0.2); Bilirubin,Indirect 0.5 mg/dL (0.0-1.0); Bilirubin,Total 0.8 mg/dL (0.3-1.0); Blood Urea Nitrogen 14 mg/dL (8-23); Calcium 8.4 mg/dL (8.6-10.3); Carbon Dioxide 21 mEq/L (23-29); Chloride 108 mEq/L (98-107); Globulin 2.9 g/dL (2.4-3.5); Glucose 88 mg/dL (70-105); Lipase 16 Units/L (11-82); Magnesium 1.8 mg/dL (1.6-2.6); Osmolality,Calculated 278 (280-300); Potassium 3.4 mEq/L (3.5-5.1); Sodium 134 mEq/L (136-145); Total Protein 6.1 g/dL (6.4-8.9); Troponin I < 0.03 ng/mL (< 0.04); eGFR For African Americans > 60 (> 60); eGFR For Non-African Americans > 60 (> 60)
[2019-08-09 01:07] LABS: Adenovirus Not Detected (Not Detect); Bordetella Pertussis Not Detected (Not Detect); Chlamydophila pneumoniae Not Detected (Not Detect); Coronavirus 229E Not Detected (Not Detect); Coronavirus HKU1 Not Detected (Not Detect); Coronavirus NL63 Not Detected (Not Detect); Coronavirus OC43 Not Detected (Not Detect); Human Metapneumovirus Not Detected (Not Detect); Human Rhinovirus/Enterovirus Not Detected (Not Detect); Influenza A Subtype 2009 H1 Not Detected (Not Detect); Influenza B Not Detected (Not Detect); Mycoplasma pneumoniae Not Detected (Not Detect); Parainfluenza Virus 1 Not Detected (Not Detect); Parainfluenza Virus 2 Not Detected (Not Detect); Parainfluenza Virus 3 Not Detected (Not Detect); Parainfluenza Virus 4 Not Detected (Not Detect); Respiratory Syncytial Virus Not Detected (Not Detect)
[2019-08-09 01:40] LABS: Activated Partial Thrombo Time 31.3 Seconds (26.0-36.0); INR 1.5; Prothrombin Time 16.6 Seconds (9.4-12.1)
[2019-08-09 05:33] LABS: Neutrophils # 0.7 K/mcL (1.6-8.9)
[2019-08-09] MEDS: *HR* Heparin 5,000 UNIT/ML VIAL SQ SCH ×2 (06:22→09:55)
[2019-08-09] MEDS ORDERED: Insulin LISPRO 300 UNITS/3 ML VIAL SQ SCH (07:30)
[2019-08-09] MEDS: Insulin LISPRO 300 UNITS/3 ML VIAL SQ SCH ×4 (08:19→22:58)
[2019-08-09] MEDS: Acetaminophen 325 MG TABLET PO PRN ×2 (09:27→17:58)
[2019-08-09 09:40] LABS: Mean Corpuscular HGB Conc 34.4 g/dL (31.6-35.5)
[2019-08-09 09:42] LABS: Hematocrit 21.2 % (35.3-44.9); Hemoglobin 7.3 g/dL (11.5-15.4); Immature Platelets 1.1 % (1.1-6.1); Mean Corpuscular Hemoglobin 29.9 pg (28.0-33.3); Mean Corpuscular Volume 86.9 fL (83.0-100.0); Mean Platelet Volume 9.5 fL (9.4-12.4); Red Blood Count 2.44 M/mcL (3.82-4.97); White Blood Count 1.2 K/mcL (4.3-11.1)
[2019-08-09 09:59] LABS: BUN/Creatinine Ratio 18 (6-26); Blood Urea Nitrogen 13 mg/dL (8-23); Calcium 8.3 mg/dL (8.6-10.3); Carbon Dioxide 20 mEq/L (23-29); Chloride 105 mEq/L (98-107); Glucose 204 mg/dL (70-105); Osmolality,Calculated 282 (280-300); Potassium 3.4 mEq/L (3.5-5.1); Sodium 133 mEq/L (136-145); eGFR For African Americans > 60 (> 60); eGFR For Non-African Americans > 60 (> 60)
[2019-08-09] MEDS: Fluconazole 100 MG TABLET PO SCH (12:09)
[2019-08-09] MEDS: Acyclovir 200 MG CAPSULE PO SCH ×2 (12:09→22:58)
[2019-08-09] MEDS: Azithromycin 500 MG in 0.9 % Sodium Chloride 250 ML IVPB SCH (12:10)
[2019-08-09] MEDS: Cefepime HCl 2,000 MG in Water for inj. (sterile) 20 ML IVP SCH ×2 (12:14→18:26)
[2019-08-09] MEDS ORDERED: *HR* LORazepam 2 MG/ML VIAL IVP ONE (12:59)
[2019-08-09 13:47] LABS: Lactate Dehydrogenase 197 Units/L (140-271)
[2019-08-10 03:02] LABS: Hemoglobin 6.7 g/dL (11.5-15.4); Immature Granulocytes % 0.9 % (0-4)
[2019-08-10 03:04] LABS: Basophils % 1.7 %; Eosinophils # 0.1 K/mcL (0.0-0.6); Eosinophils % 11.2 %; Hematocrit 20.1 % (35.3-44.9); Lymphocytes # 0.6 K/mcL (0.6-4.6); Lymphocytes % 51.7 %; Mean Corpuscular HGB Conc 33.3 g/dL (31.6-35.5); Mean Corpuscular Hemoglobin 29.4 pg (28.0-33.3); Mean Corpuscular Volume 88.2 fL (83.0-100.0); Mean Platelet Volume 10.9 fL (9.4-12.4); Monocytes % 2.6 %; Neutrophils # 0.4 K/mcL (1.6-8.9); Red Blood Count 2.28 M/mcL (3.82-4.97); Red Cell Distribution Width 13.2 % (11.5-14.5); Segmented Neutrophils % 31.9 %; White Blood Count 1.2 K/mcL (4.3-11.1)
[2019-08-10 03:21] LABS: Platelet Count 24 K/mcL (140-400)
[2019-08-10 03:37] LABS: Alanine Aminotransferase 10 Units/L (7-52); Albumin 3.2 g/dL (3.5-5.7); Albumin/Globulin Ratio 1.2 (1.1-2.2); Alkaline Phosphatase 37 Units/L (34-104); Aspartate Amino Transferase 12 Units/L (13-39); BUN/Creatinine Ratio 19 (6-26); Bilirubin,Total 0.5 mg/dL (0.3-1.0); Blood Urea Nitrogen 14 mg/dL (8-23); Calcium 8.7 mg/dL (8.6-10.3); Carbon Dioxide 22 mEq/L (23-29); Chloride 113 mEq/L (98-107); Globulin 2.7 g/dL (2.4-3.5); Glucose 107 mg/dL (70-105); Magnesium 2.3 mg/dL (1.6-2.6); Osmolality,Calculated 287 (280-300); Phosphorous 4.3 mg/dL (2.7-4.5); Sodium 138 mEq/L (136-145); Total Protein 5.9 g/dL (6.4-8.9); eGFR For African Americans > 60 (> 60); eGFR For Non-African Americans > 60 (> 60)
[2019-08-10] MEDS: Cefepime HCl 2,000 MG in Water for inj. (sterile) 20 ML IVP SCH ×3 (03:49→20:21)
[2019-08-10 04:06] LABS: Microcytosis Present (Not Present)
[2019-08-10 04:07] LABS: Anisocytosis 2+ (Not Present); Platelet Estimate Marked Decrease (Normal)
[2019-08-10] MEDS: Insulin LISPRO 300 UNITS/3 ML VIAL SQ SCH ×4 (07:54→20:39)
[2019-08-10] MEDS: Azithromycin 500 MG in 0.9 % Sodium Chloride 250 ML IVPB SCH (10:27)
[2019-08-10] MEDS: Acyclovir 200 MG CAPSULE PO SCH ×2 (10:28→20:20)
[2019-08-10] MEDS: Fluconazole 100 MG TABLET PO SCH (10:28)
[2019-08-10] MEDS: Acetaminophen 325 MG TABLET PO PRN ×2 (13:04→23:32)
[2019-08-10] MEDS ORDERED: 0.9 % Sodium Chloride 250 ML ONE ×2 (16:54→23:14)
[2019-08-11] MEDS: Cefepime HCl 2,000 MG in Water for inj. (sterile) 20 ML IVP SCH ×3 (02:14→18:31)
[2019-08-11 04:13] LABS: Red Cell Distribution Width 13.1 % (11.5-14.5)
[2019-08-11 04:15] LABS: Basophils % 0.8 %; Eosinophils # 0.1 K/mcL (0.0-0.6); Hematocrit 24.2 % (35.3-44.9); Hemoglobin 8.4 g/dL (11.5-15.4); Immature Platelets 1.3 % (1.1-6.1); Lymphocytes # 0.7 K/mcL (0.6-4.6); Lymphocytes % 56.2 %; Mean Corpuscular HGB Conc 34.7 g/dL (31.6-35.5); Mean Corpuscular Volume 86.4 fL (83.0-100.0); Mean Platelet Volume 10.5 fL (9.4-12.4); Monocytes % 3.1 %; Neutrophils # 0.4 K/mcL (1.6-8.9); Segmented Neutrophils % 29.9 %; White Blood Count 1.3 K/mcL (4.3-11.1)
[2019-08-11 04:29] LABS: Platelet Count 23 K/mcL (140-400)
[2019-08-11 04:52] LABS: Folate > 22.3 ng/mL (3.0-16.0); Vitamin B12 > 1500 pg/mL (250-1100)
[2019-08-11] MEDS ORDERED: *HR* LORazepam 2 MG/ML VIAL IVP ONE (06:22)
[2019-08-11 07:11] LABS: Anisocytosis 1+ (Not Present); Microcytosis Present (Not Present); Platelet Estimate Marked Decrease (Normal)
[2019-08-11] MEDS: Fluconazole 100 MG TABLET PO SCH (08:13)
[2019-08-11] MEDS: Acyclovir 200 MG CAPSULE PO SCH ×2 (08:13→21:28)
[2019-08-11] MEDS: Insulin LISPRO 300 UNITS/3 ML VIAL SQ SCH ×4 (08:14→21:54)
[2019-08-11 09:42] LABS: % Iron Saturation 87 % (15-50); Alanine Aminotransferase 12 Units/L (7-52); Albumin 3.6 g/dL (3.5-5.7); Albumin/Globulin Ratio 1.2 (1.1-2.2); Alkaline Phosphatase 43 Units/L (34-104); Aspartate Amino Transferase 14 Units/L (13-39); BUN/Creatinine Ratio 23 (6-26); Bilirubin,Total 1.1 mg/dL (0.3-1.0); Blood Urea Nitrogen 15 mg/dL (8-23); Calcium 8.7 mg/dL (8.6-10.3); Carbon Dioxide 20 mEq/L (23-29); Chloride 107 mEq/L (98-107); Globulin 3.1 g/dL (2.4-3.5); Glucose 165 mg/dL (70-105); Iron 196 mcg/dL (50-170); Osmolality,Calculated 287 (280-300); Potassium 3.9 mEq/L (3.5-5.1); Sodium 136 mEq/L (136-145); Total Protein 6.7 g/dL (6.4-8.9); Transferrin 161 mg/dL (203-362); eGFR For African Americans > 60 (> 60); eGFR For Non-African Americans > 60 (> 60)
[2019-08-11 10:20] LABS: Ferritin > 1500 ng/mL (10-120)
[2019-08-11] MEDS: Azithromycin 500 MG in 0.9 % Sodium Chloride 250 ML IVPB SCH (11:33)
[2019-08-11] MEDS ORDERED: *HR* Alteplase (Cathflo) 2 MG VIAL IVP ONE (17:01)
[2019-08-11] MEDS: Acetaminophen 325 MG TABLET PO PRN (18:30)
[2019-08-11] MEDS ORDERED: *HR* LORazepam 0.5 MG TABLET PO ONE (21:29)
[2019-08-12 01:43] LABS: Red Cell Distribution Width 13.2 % (11.5-14.5)
[2019-08-12 01:45] LABS: Basophils % 0.8 %; Eosinophils # 0.1 K/mcL (0.0-0.6); Eosinophils % 7.9 %; Hematocrit 23.2 % (35.3-44.9); Immature Platelets 1.7 % (1.1-6.1); Lymphocytes # 0.9 K/mcL (0.6-4.6); Lymphocytes % 65.1 %; Mean Corpuscular HGB Conc 34.5 g/dL (31.6-35.5); Mean Corpuscular Volume 86.9 fL (83.0-100.0); Monocytes % 3.2 %; Neutrophils # 0.3 K/mcL (1.6-8.9); Red Blood Count 2.67 M/mcL (3.82-4.97); White Blood Count 1.3 K/mcL (4.3-11.1)
[2019-08-12 01:55] LABS: INR 1.2; Prothrombin Time 13.7 Seconds (9.4-12.1)
[2019-08-12 02:02] LABS: BUN/Creatinine Ratio 23 (6-26); Blood Urea Nitrogen 18 mg/dL (8-23); Calcium 8.6 mg/dL (8.6-10.3); Carbon Dioxide 23 mEq/L (23-29); Chloride 110 mEq/L (98-107); Glucose 138 mg/dL (70-105); Osmolality,Calculated 294 (280-300); Sodium 140 mEq/L (136-145); eGFR For African Americans > 60 (> 60); eGFR For Non-African Americans > 60 (> 60)
[2019-08-12 02:06] LABS: Platelet Count 22 K/mcL (140-400)
[2019-08-12 02:20] LABS: Platelet Estimate Marked Decrease (Normal)
[2019-08-12 02:21] LABS: Anisocytosis 1+ (Not Present); Microcytosis Present (Not Present)
[2019-08-12] MEDS: Cefepime HCl 2,000 MG in Water for inj. (sterile) 20 ML IVP SCH ×3 (02:44→17:57)
[2019-08-12] MEDS ORDERED: 0.9 % Sodium Chloride 500 ML ONE (08:59)
[2019-08-12] MEDS: Insulin LISPRO 300 UNITS/3 ML VIAL SQ SCH ×4 (09:18→22:07)
[2019-08-12] MEDS: Azithromycin 500 MG in 0.9 % Sodium Chloride 250 ML IVPB SCH (10:14)
[2019-08-12] MEDS: Acyclovir 200 MG CAPSULE PO SCH ×2 (10:21→22:07)
[2019-08-12] MEDS: Fluconazole 100 MG TABLET PO SCH (10:21)
[2019-08-12] MEDS: Acetaminophen 325 MG TABLET PO PRN ×2 (11:24→17:22)
[2019-08-12] MEDS ORDERED: *HR* LORazepam 0.5 MG TABLET PO ONE ×2 (22:10→22:11)
[2019-08-13] MEDS: Cefepime HCl 2,000 MG in Water for inj. (sterile) 20 ML IVP SCH ×3 (02:57→17:53)
[2019-08-13 05:18] LABS: Basophils % 0.9 %; Eosinophils % 5.3 %; Hemoglobin 7.3 g/dL (11.5-15.4)
[2019-08-13 05:20] LABS: Eosinophils # 0.1 K/mcL (0.0-0.6); Hematocrit 21.3 % (35.3-44.9); Lymphocytes # 0.7 K/mcL (0.6-4.6); Lymphocytes % 64.6 %; Mean Corpuscular HGB Conc 34.3 g/dL (31.6-35.5); Mean Corpuscular Hemoglobin 29.9 pg (28.0-33.3); Mean Corpuscular Volume 87.3 fL (83.0-100.0); Mean Platelet Volume 10.9 fL (9.4-12.4); Monocytes % 3.5 %; Neutrophils # 0.3 K/mcL (1.6-8.9); Red Blood Count 2.44 M/mcL (3.82-4.97); Red Cell Distribution Width 13.1 % (11.5-14.5); Segmented Neutrophils % 25.7 %; White Blood Count 1.1 K/mcL (4.3-11.1)
[2019-08-13 05:27] LABS: INR 1.3; Prothrombin Time 14.4 Seconds (9.4-12.1)
[2019-08-13 05:39] LABS: BUN/Creatinine Ratio 22 (6-26); Blood Urea Nitrogen 13 mg/dL (8-23); Calcium 7.9 mg/dL (8.6-10.3); Carbon Dioxide 25 mEq/L (23-29); Chloride 111 mEq/L (98-107); Glucose 131 mg/dL (70-105); Osmolality,Calculated 290 (280-300); Potassium 3.7 mEq/L (3.5-5.1); Sodium 139 mEq/L (136-145); eGFR For African Americans > 60 (> 60); eGFR For Non-African Americans > 60 (> 60)
[2019-08-13 05:47] LABS: Platelet Count 18 K/mcL (140-400)
[2019-08-13 05:48] LABS: Platelet Estimate Marked Decrease (Normal)
[2019-08-13] MEDS: Acyclovir 200 MG CAPSULE PO SCH ×2 (09:59→21:33)
[2019-08-13] MEDS: Insulin LISPRO 300 UNITS/3 ML VIAL SQ SCH ×4 (10:00→21:27)
[2019-08-13] MEDS: *HR* LORazepam 0.5 MG TABLET PO PRN (21:33)
[2019-08-13] MEDS ORDERED: 0.9 % Sodium Chloride 250 ML ONE (21:49)
[2019-08-14] MEDS: Cefepime HCl 2,000 MG in Water for inj. (sterile) 20 ML IVP SCH ×3 (02:36→20:48)
[2019-08-14] MEDS ORDERED: 0.9 % Sodium Chloride 250 ML ONE ×2 (04:02→10:24)
[2019-08-14 07:14] LABS: Hematocrit 20.2 % (35.3-44.9); Mean Corpuscular Hemoglobin 30.3 pg (28.0-33.3)
[2019-08-14 07:16] LABS: Eosinophils # 0.1 K/mcL (0.0-0.6); Hemoglobin 7.1 g/dL (11.5-15.4); Immature Platelets 1.3 % (1.1-6.1); Lymphocytes # 0.4 K/mcL (0.6-4.6); Mean Corpuscular HGB Conc 35.1 g/dL (31.6-35.5); Mean Corpuscular Volume 86.3 fL (83.0-100.0); Mean Platelet Volume 9.3 fL (9.4-12.4); Red Blood Count 2.34 M/mcL (3.82-4.97)
[2019-08-14 07:28] LABS: Platelet Count 34 K/mcL (140-400)
[2019-08-14 07:30] LABS: White Blood Count 0.7 K/mcL (4.3-11.1)
[2019-08-14] MEDS: Insulin LISPRO 300 UNITS/3 ML VIAL SQ SCH ×4 (09:16→20:49)
[2019-08-14 09:30] LABS: Neutrophils # 0.2 K/mcL (1.6-8.9); Platelet Estimate Marked Decrease (Normal); Reactive Lymphocytes Present (Not Present); Toxic Granulation Present (Not Present)
[2019-08-14] MEDS ORDERED: Lidocaine -MPF 2% 2 ML VIAL ONE (09:55)
[2019-08-14 14:57] LABS: Appearance of Body Fluid Clear (Clear); Volume of Body Fluid 15 mL
[2019-08-14 14:58] LABS: Appearance of Body Fluid Hazy (Clear); Volume of Body Fluid 14 mL
[2019-08-14 17:28] LABS: A.galactomannan Ag Index 0.04
[2019-08-14] MEDS: *HR* LORazepam 0.5 MG TABLET PO PRN (20:48)
[2019-08-15] MEDS: Cefepime HCl 2,000 MG in Water for inj. (sterile) 20 ML IVP SCH ×3 (03:55→20:07)
[2019-08-15 04:22] LABS: Hemoglobin 6.5 g/dL (11.5-15.4); Mean Corpuscular HGB Conc 34.2 g/dL (31.6-35.5); Mean Corpuscular Hemoglobin 29.7 pg (28.0-33.3); Mean Corpuscular Volume 86.8 fL (83.0-100.0); Mean Platelet Volume 9.5 fL (9.4-12.4); Red Blood Count 2.19 M/mcL (3.82-4.97); Red Cell Distribution Width 12.8 % (11.5-14.5)
[2019-08-15 04:24] LABS: Immature Platelets 1.6 % (1.1-6.1)
[2019-08-15 04:29] LABS: BUN/Creatinine Ratio 22 (6-26); Blood Urea Nitrogen 13 mg/dL (8-23); Calcium 8.8 mg/dL (8.6-10.3); Carbon Dioxide 29 mEq/L (23-29); Chloride 109 mEq/L (98-107); Glucose 138 mg/dL (70-105); Osmolality,Calculated 294 (280-300); Potassium 3.8 mEq/L (3.5-5.1); Sodium 141 mEq/L (136-145); eGFR For African Americans > 60 (> 60); eGFR For Non-African Americans > 60 (> 60)
[2019-08-15 04:38] LABS: White Blood Count 0.7 K/mcL (4.3-11.1)
[2019-08-15 05:57] LABS: Hematocrit 18.9 % (35.3-44.9); Hemoglobin 6.6 g/dL (11.5-15.4)
[2019-08-15] MEDS ORDERED: 0.9 % Sodium Chloride 250 ML ONE ×2 (08:37→17:32)
[2019-08-15] MEDS: Insulin LISPRO 300 UNITS/3 ML VIAL SQ SCH ×4 (08:49→21:25)
[2019-08-15] MEDS ORDERED: Furosemide 20 MG/2 ML VIAL IVP ONE (12:50)
[2019-08-15] MEDS: Acetaminophen 325 MG TABLET PO PRN (20:06)
[2019-08-15] MEDS: *HR* LORazepam 0.5 MG TABLET PO PRN (20:06)
[2019-08-16] MEDS: Cefepime HCl 2,000 MG in Water for inj. (sterile) 20 ML IVP SCH ×3 (02:11→18:08)
[2019-08-16 04:10] LABS: Hematocrit 25.6 % (35.3-44.9); Hemoglobin 8.6 g/dL (11.5-15.4); Immature Platelets 2.3 % (1.1-6.1); Mean Corpuscular HGB Conc 33.6 g/dL (31.6-35.5); Mean Corpuscular Hemoglobin 28.5 pg (28.0-33.3); Mean Corpuscular Volume 84.8 fL (83.0-100.0); Mean Platelet Volume 8.8 fL (9.4-12.4); Red Blood Count 3.02 M/mcL (3.82-4.97); Red Cell Distribution Width 13.8 % (11.5-14.5)
[2019-08-16 04:29] LABS: White Blood Count 0.9 K/mcL (4.3-11.1)
[2019-08-16] MEDS: Acetaminophen 325 MG TABLET PO PRN ×2 (05:10→20:39)
[2019-08-16] MEDS: Insulin LISPRO 300 UNITS/3 ML VIAL SQ SCH ×4 (08:19→20:39)
[2019-08-16 20:04] LABS: Influenza A PCR Body Fluid NOT DETECTED; Influenza B PCR Body Fluid NOT DETECTED; RVP Body Fluid Source LLL BAL
[2019-08-16] MEDS: *HR* LORazepam 0.5 MG TABLET PO PRN (20:39)
[2019-08-17] MEDS: Cefepime HCl 2,000 MG in Water for inj. (sterile) 20 ML IVP SCH ×3 (03:14→20:17)
[2019-08-17 03:36] LABS: Hematocrit 25.5 % (35.3-44.9); Hemoglobin 8.7 g/dL (11.5-15.4); Immature Platelets 2.4 % (1.1-6.1); Mean Corpuscular HGB Conc 34.1 g/dL (31.6-35.5); Mean Corpuscular Hemoglobin 28.9 pg (28.0-33.3); Mean Corpuscular Volume 84.7 fL (83.0-100.0); Mean Platelet Volume 9.3 fL (9.4-12.4); Red Blood Count 3.01 M/mcL (3.82-4.97); Red Cell Distribution Width 13.3 % (11.5-14.5)
[2019-08-17 03:40] LABS: White Blood Count 1.1 K/mcL (4.3-11.1)
[2019-08-17] MEDS: Acetaminophen 325 MG TABLET PO PRN ×2 (06:12→13:40)
[2019-08-17 07:04] LABS: RSV PCR Body Fluid NOT DETECTED
[2019-08-17] MEDS: Insulin LISPRO 300 UNITS/3 ML VIAL SQ SCH ×4 (08:52→23:36)
[2019-08-17 17:40] LABS: HSV Source LLL BAL
[2019-08-17 17:41] LABS: HSV Source LLL BAL
[2019-08-17] MEDS: *HR* LORazepam 0.5 MG TABLET PO PRN (20:16)
[2019-08-18] MEDS: Cefepime HCl 2,000 MG in Water for inj. (sterile) 20 ML IVP SCH (04:08)
[2019-08-18] MEDS: Insulin LISPRO 300 UNITS/3 ML VIAL SQ SCH (08:40)
[2019-08-18 11:19] VITALS: BP 148/68
[2019-08-18] MEDS ORDERED: Aminoglycoside Consult 1 EACH MC ONE (19:49)
== END 2019-08-18 19:50 | disposition home or self-care (01) | DRG 871 ==
LOC: EMEROOARM 13:45 → 2NENU 13:45 → SUATTDRO 08-10 08:54 → 2NENU 08-11 08:25
PROVIDERS: ADMIT Family Medicine; ATTEND Internal Medicine

== ENCOUNTER 2020-02-03 17:23 | Inpatient (IN) ==
[2020-02-03] MEDS ORDERED: *HR* Promethazine 25 MG/ML VIAL IVP PRN (21:02)
[2020-02-03] MEDS ORDERED: Naloxone 0.4 MG/ML INJ IVP PRN (21:02)
[2020-02-03] MEDS ORDERED: cefTRIAXone 1,000 MG in 0.9 % Sodium Chloride Mini Bag 100 ML IVPB SCH (22:00)
[2020-02-03 22:03] LABS: Hemoglobin 6.3 g/dL (11.5-15.4); Immature Platelets 1.8 % (1.1-6.1); Lymphocytes % 86.7 %; Mean Corpuscular Hemoglobin 29.6 pg (28.0-33.3); Mean Corpuscular Volume 84.5 fL (83.0-100.0); Mean Platelet Volume 10.6 fL (9.4-12.4); Monocytes % 6.7 %; Red Blood Count 2.13 M/mcL (3.82-4.97); Segmented Neutrophils % 6.6 %
[2020-02-03 22:20] LABS: Alanine Aminotransferase 69 Units/L (7-52); Albumin 3.3 g/dL (3.5-5.7); Albumin/Globulin Ratio 1.1 (1.1-2.2); Alkaline Phosphatase 64 Units/L (34-104); Aspartate Amino Transferase 42 Units/L (13-39); BUN/Creatinine Ratio 20 (6-26); Bilirubin,Total 1.5 mg/dL (0.3-1.0); Blood Urea Nitrogen 19 mg/dL (8-23); Calcium 8.5 mg/dL (8.6-10.3); Carbon Dioxide 21 mEq/L (23-29); Chloride 107 mEq/L (98-107); Globulin 2.9 g/dL (2.4-3.5); Glucose 145 mg/dL (70-105); Osmolality,Calculated 287 (280-300); Potassium 3.6 mEq/L (3.5-5.1); Sodium 136 mEq/L (136-145); Total Protein 6.2 g/dL (6.4-8.9); eGFR For African Americans > 60 (> 60); eGFR For Non-African Americans 58 (> 60)
[2020-02-03 22:25] LABS: Lymphocytes # 0.2 K/mcL (0.6-4.6); Platelet Count 6 K/mcL (140-400); White Blood Count 0.2 K/mcL (4.3-11.1)
[2020-02-03 22:26] LABS: Platelet Estimate Marked Decrease (Normal)
[2020-02-03 23:05] LABS: Bilirubin,Urine Negative (Negative); Blood,Urine Trace (Negative); Clarity,Urine Turbid (Clear); Color,Urine Yellow (Yellow); Glucose,Urine (UA) Normal (Normal); Ketones,Urine Negative (Negative); Leukocyte Esterase,Urine Negative (Negative); Nitrite,Urine Negative (Negative); Protein,Urine Trace mg/dL (Neg-Trace); Specific Gravity,Urine 1.016 (1.010-1.025)
[2020-02-03 23:07] LABS: Squamous Epithelial Cell,Urine Few per hpf (None-Few); WBC,Urine 0-3 per hpf (0-3)
[2020-02-03] MEDS: 0.9 % Sodium Chloride 1,000 ML IVC SCH (23:14)
[2020-02-03] MEDS: Acetaminophen 325 MG TABLET PO PRN (23:15)
[2020-02-04] MEDS ORDERED: Vancomycin 1,500 MG/265 ML IV.SOLN IVPB ONE (00:10)
[2020-02-04] MEDS ORDERED: 0.9 % Sodium Chloride 250 ML ONE ×4 (00:58→21:28)
[2020-02-04 04:50] LABS: Red Cell Distribution Width 13.6 % (11.5-14.5)
[2020-02-04 04:52] LABS: Hematocrit 19.4 % (35.3-44.9); Hemoglobin 6.8 g/dL (11.5-15.4); Immature Platelets 2.6 % (1.1-6.1); Mean Corpuscular HGB Conc 35.1 g/dL (31.6-35.5); Mean Corpuscular Hemoglobin 30.8 pg (28.0-33.3); Mean Corpuscular Volume 87.8 fL (83.0-100.0); Mean Platelet Volume 10.5 fL (9.4-12.4); Red Blood Count 2.21 M/mcL (3.82-4.97)
[2020-02-04 05:02] LABS: BUN/Creatinine Ratio 19 (6-26); Blood Urea Nitrogen 17 mg/dL (8-23); Calcium 8.1 mg/dL (8.6-10.3); Carbon Dioxide 22 mEq/L (23-29); Chloride 110 mEq/L (98-107); Chol/HDL Ratio 3.1 (0-4.9); Cholesterol 53 mg/dL (< 200); Glucose 132 mg/dL (70-105); HDL Cholesterol 17 mg/dL (40-59); LDL Cholesterol,Calculated 17 mg/dL (< 100); Magnesium 1.4 mg/dL (1.6-2.6); Osmolality,Calculated 293 (280-300); Phosphorous 3.7 mg/dL (2.7-4.5); Potassium 3.5 mEq/L (3.5-5.1); Sodium 140 mEq/L (136-145); Triglycerides 93 mg/dL (< 150); eGFR For African Americans > 60 (> 60); eGFR For Non-African Americans > 60 (> 60)
[2020-02-04 05:03] LABS: INR 1.6; Prothrombin Time 18.4 Seconds (9.4-12.1)
[2020-02-04 05:04] LABS: Lymphocytes # 0.3 K/mcL (0.6-4.6)
[2020-02-04 05:06] LABS: Platelet Count 6 K/mcL (140-400); White Blood Count 0.3 K/mcL (4.3-11.1)
[2020-02-04] MEDS ORDERED: Magnesium Sulfate 1 GM/102 ML PIGGYBACK IVPB ONE (05:09)
[2020-02-04] MEDS: Acetaminophen 325 MG TABLET PO PRN ×3 (05:37→21:54)
[2020-02-04 06:01] LABS: Platelet Estimate Marked Decrease (Normal)
[2020-02-04] MEDS: *HR* OxyCODONE Immed Rel 5 MG TABLET PO PRN ×2 (06:18→14:16)
[2020-02-04] MEDS ORDERED: Dextrose Gel 15 GM/37.5 ML TUBE PO PRN ×2 (07:09)
[2020-02-04] MEDS ORDERED: D5% in Water 1,000 ML IVC PRN (07:09)
[2020-02-04] MEDS ORDERED: *HR* Dextrose 50 % in Water (Vial) 50 ML VIAL IVP PRN (07:09)
[2020-02-04] MEDS ORDERED: Piperacillin/Tazobactam 3.375 GM in 0.9 % Sodium Chloride Mini Bag 100 ML IVPB SCH (08:00)
[2020-02-04] MEDS: Insulin LISPRO 300 UNITS/3 ML VIAL SQ SCH ×4 (08:33→21:53)
[2020-02-04] MEDS: 0.9 % Sodium Chloride 1,000 ML IVC SCH (09:34)
[2020-02-04] MEDS ORDERED: Cefepime HCl 2,000 MG in Water for inj. (sterile) 20 ML IVP SCH (10:00)
[2020-02-04 11:18] LABS: Adenovirus Not Detected (Not Detect); Bordetella Pertussis Not Detected (Not Detect); Chlamydophila pneumoniae Not Detected (Not Detect); Coronavirus 229E Not Detected (Not Detect); Coronavirus HKU1 Not Detected (Not Detect); Coronavirus NL63 Not Detected (Not Detect); Coronavirus OC43 Not Detected (Not Detect); Human Metapneumovirus Not Detected (Not Detect); Human Rhinovirus/Enterovirus Not Detected (Not Detect); Influenza A Subtype 2009 H1 Not Detected (Not Detect); Influenza B Not Detected (Not Detect); Mycoplasma pneumoniae Not Detected (Not Detect); Parainfluenza Virus 1 Not Detected (Not Detect); Parainfluenza Virus 2 Not Detected (Not Detect); Parainfluenza Virus 3 Not Detected (Not Detect); Parainfluenza Virus 4 Not Detected (Not Detect); Respiratory Syncytial Virus Not Detected (Not Detect)
[2020-02-04] MEDS ORDERED: Ertapenem 1,000 MG in 0.9 % Sodium Chloride Mini Bag 100 ML IVPB SCH (16:00)
[2020-02-04] MEDS ORDERED: Saline Nasal Spray 44 ML BOTTLE NS PRN (16:01)
[2020-02-04 16:21] LABS: Hematocrit 22.7 % (35.3-44.9); Immature Platelets 1.5 % (1.1-6.1); Lymphocytes # 0.3 K/mcL (0.6-4.6); Lymphocytes % 93.1 %; Mean Corpuscular HGB Conc 35.2 g/dL (31.6-35.5); Mean Corpuscular Hemoglobin 30.1 pg (28.0-33.3); Mean Corpuscular Volume 85.3 fL (83.0-100.0); Mean Platelet Volume 10.2 fL (9.4-12.4); Monocytes % 3.4 %; Red Blood Count 2.66 M/mcL (3.82-4.97); Red Cell Distribution Width 13.1 % (11.5-14.5); Segmented Neutrophils % 3.5 %
[2020-02-04 16:44] LABS: White Blood Count 0.3 K/mcL (4.3-11.1)
[2020-02-04 16:45] LABS: Platelet Count 15 K/mcL (140-400)
[2020-02-04] MEDS ORDERED: Water for inj. (sterile) 20 ML IV ONE (17:11)
[2020-02-04 17:16] LABS: Platelet Estimate Marked Decrease (Normal)
[2020-02-04] MEDS ORDERED: *HR* OxyCODONE Immed Rel 5 MG TABLET PO ONE (17:57)
[2020-02-04] MEDS: Sulfamethoxazole/Trimeth DS 1 EACH TABLET PO SCH (17:58)
[2020-02-04] MEDS: Meropenem 2,000 MG in Water for inj. (sterile) 20 ML IVP SCH (17:58)
[2020-02-04] MEDS: *HR* LORazepam 0.5 MG TABLET PO SCH (21:54)
[2020-02-04] MEDS: Fluconazole 100 MG TABLET PO SCH (21:54)
[2020-02-04] MEDS: Acyclovir 200 MG CAPSULE PO SCH (21:55)
[2020-02-05] MEDS: *HR* OxyCODONE Immed Rel 5 MG TABLET PO PRN ×4 (00:44→21:02)
[2020-02-05 01:04] LABS: Hemoglobin 7.1 g/dL (11.5-15.4); Monocytes % 6.3 %; Red Cell Distribution Width 13.2 % (11.5-14.5)
[2020-02-05 01:06] LABS: Hematocrit 20.3 % (35.3-44.9); Immature Granulocytes % 6.3 % (0-4); Immature Platelets 2.8 % (1.1-6.1); Lymphocytes % 81.3 %; Mean Corpuscular Hemoglobin 29.8 pg (28.0-33.3); Mean Corpuscular Volume 85.3 fL (83.0-100.0); Mean Platelet Volume 10.5 fL (9.4-12.4); Nucleated Red Blood Cells 12.5 /100 WBC (0); Red Blood Count 2.38 M/mcL (3.82-4.97); Segmented Neutrophils % 6.1 %
[2020-02-05 01:12] LABS: Lymphocytes # 0.2 K/mcL (0.6-4.6)
[2020-02-05 01:16] LABS: Platelet Count 27 K/mcL (140-400); White Blood Count 0.2 K/mcL (4.3-11.1)
[2020-02-05 01:22] LABS: BUN/Creatinine Ratio 21 (6-26); Blood Urea Nitrogen 18 mg/dL (8-23); Calcium 8.2 mg/dL (8.6-10.3); Carbon Dioxide 22 mEq/L (23-29); Chloride 106 mEq/L (98-107); Glucose 162 mg/dL (70-105); Osmolality,Calculated 287 (280-300); Potassium 3.7 mEq/L (3.5-5.1); Sodium 136 mEq/L (136-145); eGFR For African Americans > 60 (> 60); eGFR For Non-African Americans > 60 (> 60)
[2020-02-05 01:46] LABS: Platelet Estimate Marked Decrease (Normal)
[2020-02-05] MEDS: Meropenem 2,000 MG in Water for inj. (sterile) 20 ML IVP SCH ×2 (04:01→16:07)
[2020-02-05 08:15] LABS: Hematocrit 23.3 % (35.3-44.9); Hemoglobin 8.2 g/dL (11.5-15.4)
[2020-02-05] MEDS: Acyclovir 200 MG CAPSULE PO SCH ×2 (08:57→21:02)
[2020-02-05] MEDS: Sulfamethoxazole/Trimeth DS 1 EACH TABLET PO SCH (08:57)
[2020-02-05] MEDS: Fluconazole 100 MG TABLET PO SCH ×2 (08:57→21:02)
[2020-02-05] MEDS: allopurinoL 300 MG TABLET PO SCH (08:57)
[2020-02-05] MEDS: Multivit/Ca/Min/Fe/FA 1 TAB TABLET PO SCH (08:57)
[2020-02-05] MEDS: Insulin LISPRO 300 UNITS/3 ML VIAL SQ SCH ×4 (08:58→21:04)
[2020-02-05] MEDS: Cyanocobalamin (B-12) 1,000 MCG TABLET PO SCH (08:58)
[2020-02-05 14:55] LABS: Red Cell Distribution Width 13.4 % (11.5-14.5)
[2020-02-05 14:57] LABS: Hemoglobin 7.4 g/dL (11.5-15.4); Immature Platelets 2.4 % (1.1-6.1); Mean Corpuscular HGB Conc 35.2 g/dL (31.6-35.5); Mean Corpuscular Hemoglobin 30.5 pg (28.0-33.3); Mean Corpuscular Volume 86.4 fL (83.0-100.0); Mean Platelet Volume 11.2 fL (9.4-12.4); Red Blood Count 2.43 M/mcL (3.82-4.97)
[2020-02-05 15:11] LABS: White Blood Count 0.3 K/mcL (4.3-11.1)
[2020-02-05] MEDS: Acetaminophen 325 MG TABLET PO PRN (16:06)
[2020-02-05] MEDS: *HR* LORazepam 0.5 MG TABLET PO SCH (21:02)
[2020-02-06 00:23] LABS: Hematocrit 21.4 % (35.3-44.9); Hemoglobin 7.2 g/dL (11.5-15.4); Mean Corpuscular HGB Conc 33.6 g/dL (31.6-35.5); Mean Corpuscular Hemoglobin 29.8 pg (28.0-33.3); Mean Corpuscular Volume 88.4 fL (83.0-100.0); Red Blood Count 2.42 M/mcL (3.82-4.97)
[2020-02-06 00:25] LABS: Immature Platelets 2.5 % (1.1-6.1); Lymphocytes % 88.2 %; Mean Platelet Volume 11.4 fL (9.4-12.4); Monocytes % 2.9 %; Red Cell Distribution Width 13.3 % (11.5-14.5); Segmented Neutrophils % 8.9 %
[2020-02-06 00:26] LABS: Lymphocytes # 0.4 K/mcL (0.6-4.6)
[2020-02-06 00:28] LABS: Platelet Count 26 K/mcL (140-400); White Blood Count 0.4 K/mcL (4.3-11.1)
[2020-02-06 00:40] LABS: BUN/Creatinine Ratio 29 (6-26); Blood Urea Nitrogen 21 mg/dL (8-23); Calcium 8.4 mg/dL (8.6-10.3); Carbon Dioxide 25 mEq/L (23-29); Chloride 104 mEq/L (98-107); Glucose 131 mg/dL (70-105); Osmolality,Calculated 283 (280-300); Potassium 3.9 mEq/L (3.5-5.1); Sodium 134 mEq/L (136-145); Vancomycin,Trough 4 mcg/mL (5-10); eGFR For African Americans > 60 (> 60); eGFR For Non-African Americans > 60 (> 60)
[2020-02-06 00:45] LABS: Platelet Estimate Marked Decrease (Normal)
[2020-02-06] MEDS: Vancomycin 1,250 MG/262.5 ML IV.SOLN IVPB SCH ×2 (02:13→14:05)
[2020-02-06] MEDS ORDERED: Water for inj. (sterile) 20 ML IV ONE (03:27)
[2020-02-06] MEDS: Meropenem 2,000 MG in Water for inj. (sterile) 20 ML IVP SCH (03:37)
[2020-02-06] MEDS ORDERED: Ibuprofen 600 MG TABLET PO ONE (03:52)
[2020-02-06] MEDS: *HR* OxyCODONE Immed Rel 5 MG TABLET PO PRN ×3 (05:30→14:04)
[2020-02-06] MEDS: Multivit/Ca/Min/Fe/FA 1 TAB TABLET PO SCH (09:45)
[2020-02-06] MEDS: Fluconazole 100 MG TABLET PO SCH (09:46)
[2020-02-06] MEDS: Acyclovir 200 MG CAPSULE PO SCH (09:46)
[2020-02-06] MEDS: allopurinoL 300 MG TABLET PO SCH (09:46)
[2020-02-06] MEDS: Cyanocobalamin (B-12) 1,000 MCG TABLET PO SCH (09:46)
[2020-02-06] MEDS: Insulin LISPRO 300 UNITS/3 ML VIAL SQ SCH ×2 (09:47→12:17)
[2020-02-06] MEDS: Sulfamethoxazole/Trimeth DS 1 EACH TABLET PO SCH (09:47)
[2020-02-06] MEDS ORDERED: polyethylene glycoL 3350 17 GM POWD.PACK PO PRN (10:28)
[2020-02-06] MEDS ORDERED: Sennosides/Docusate Sodium TABLET PO SCH (10:30)
[2020-02-06 12:10] VITALS: BP 124/79
[2020-02-06 12:17] LABS: Hematocrit 20.7 % (35.3-44.9); Hemoglobin 6.9 g/dL (11.5-15.4); Mean Corpuscular HGB Conc 33.3 g/dL (31.6-35.5); Mean Corpuscular Hemoglobin 29.6 pg (28.0-33.3); Mean Corpuscular Volume 88.8 fL (83.0-100.0); Red Blood Count 2.33 M/mcL (3.82-4.97)
[2020-02-06 12:19] LABS: Immature Platelets 2.6 % (1.1-6.1); Mean Platelet Volume 11.1 fL (9.4-12.4); Red Cell Distribution Width 13.4 % (11.5-14.5)
[2020-02-06 12:28] LABS: White Blood Count 0.3 K/mcL (4.3-11.1)
[2020-02-08] MEDS ORDERED: ESTRADIOL APPL VG SCH (09:00)
== END 2020-02-06 15:35 | disposition short-term general hospital (02) | DRG 871 ==
LOC: 2ANU → SUATTDRO 20:01
PROVIDERS: ADMIT Student in an Organized Health Care Education/Training Program; ATTEND Family Medicine

== ENCOUNTER 2020-03-07 21:57 | Inpatient (IN) ==
[2020-03-08] MEDS ORDERED: Naloxone 0.4 MG/ML INJ IVP PRN (00:14)
[2020-03-08] MEDS ORDERED: 0.9 % Sodium Chloride 1,000 ML IVC SCH (00:15)
[2020-03-08 01:01] LABS: Lymphocytes % 82.8 %
[2020-03-08 01:03] LABS: Hematocrit 18.7 % (35.3-44.9); Hemoglobin 6.5 g/dL (11.5-15.4); Immature Granulocytes % 1.6 % (0-4); Immature Platelets 5.6 % (1.1-6.1); Lymphocytes # 1.1 K/mcL (0.6-4.6); Mean Corpuscular HGB Conc 34.8 g/dL (31.6-35.5); Mean Corpuscular Hemoglobin 29.1 pg (28.0-33.3); Mean Corpuscular Volume 83.9 fL (83.0-100.0); Mean Platelet Volume 11.5 fL (9.4-12.4); Monocytes # 0.1 K/mcL (0.0-1.3); Monocytes % 5.5 %; Neutrophils # 0.1 K/mcL (1.6-8.9); Red Blood Count 2.23 M/mcL (3.82-4.97); Red Cell Distribution Width 12.5 % (11.5-14.5); Segmented Neutrophils % 10.1 %; White Blood Count 1.3 K/mcL (4.3-11.1)
[2020-03-08 01:18] LABS: INR 1.2; Platelet Count 28 K/mcL (140-400); Prothrombin Time 13.7 Seconds (9.4-12.1)
[2020-03-08 01:21] LABS: Activated Partial Thrombo Time 30.1 Seconds (26.0-36.0)
[2020-03-08 01:24] LABS: Alanine Aminotransferase 23 Units/L (7-52); Albumin 3.7 g/dL (3.5-5.7); Albumin/Globulin Ratio 1.2 (1.1-2.2); Alkaline Phosphatase 53 Units/L (34-104); Aspartate Amino Transferase 16 Units/L (13-39); BUN/Creatinine Ratio 23 (6-26); Bilirubin,Total 0.4 mg/dL (0.3-1.0); Blood Urea Nitrogen 21 mg/dL (8-23); Calcium 9.1 mg/dL (8.6-10.3); Carbon Dioxide 22 mEq/L (23-29); Chloride 105 mEq/L (98-107); Glucose 166 mg/dL (70-105); Osmolality,Calculated 291 (280-300); Potassium 4.1 mEq/L (3.5-5.1); Sodium 137 mEq/L (136-145); Total Protein 6.7 g/dL (6.4-8.9); Troponin I < 0.03 ng/mL (< 0.04); eGFR For African Americans > 60 (> 60); eGFR For Non-African Americans > 60 (> 60)
[2020-03-08] MEDS: Acetaminophen 325 MG TABLET PO PRN ×3 (01:53→21:43)
[2020-03-08 02:13] LABS: Platelet Estimate Marked Decrease (Normal)
[2020-03-08] MEDS ORDERED: D5% in Water 1,000 ML IVC PRN (02:27)
[2020-03-08] MEDS ORDERED: Dextrose Gel 15 GM/37.5 ML TUBE PO PRN ×2 (02:27)
[2020-03-08] MEDS ORDERED: *HR* Dextrose 50 % in Water (Vial) 50 ML VIAL IVP PRN (02:27)
[2020-03-08] MEDS ORDERED: 0.9 % Sodium Chloride 250 ML ONE (05:43)
[2020-03-08] MEDS: Insulin LISPRO 300 UNITS/3 ML VIAL SQ SCH ×3 (09:17→16:47)
[2020-03-08 13:06] LABS: Hemoglobin 7.3 g/dL (11.5-15.4)
[2020-03-08] MEDS ORDERED: Perflutren Lipid Microsphere 1.3 ML in 0.9 % Sodium Chloride 8.7 ML IVP PRN ×2 (15:40→17:16)
[2020-03-08 15:43] LABS: Bilirubin,Urine Negative (Negative); Blood,Urine Trace (Negative); Clarity,Urine Clear (Clear); Color,Urine Colorless (Yellow); Glucose,Urine (UA) Normal (Normal); Ketones,Urine Negative (Negative); Leukocyte Esterase,Urine Negative (Negative); Nitrite,Urine Negative (Negative); Protein,Urine Negative (Neg-Trace); RBC,Urine 0-3 per hpf (0-3); Specific Gravity,Urine 1.005 (1.010-1.025); Squamous Epithelial Cell,Urine Few per hpf (None-Few); Urobilinogen,Urine Normal (Normal); WBC,Urine 0-3 per hpf (0-3)
[2020-03-08] MEDS ORDERED: Gadolinium Contrast Agent (WT Based) IV PRN (17:16)
[2020-03-08] MEDS ORDERED: 0.9 % Sodium Chloride 250 ML IVC SCH (17:30)
[2020-03-09] MEDS ORDERED: CYTARABINE SQ SCH
[2020-03-09] MEDS ORDERED: Hydrocortisone Sodium Succ 100 MG/2 ML VIAL IVP PRN
[2020-03-09] MEDS ORDERED: EPINEPHrine 1 MG/ML VIAL SQ PRN
[2020-03-09 01:50] LABS: Hematocrit 22.9 % (35.3-44.9); Hemoglobin 7.7 g/dL (11.5-15.4); Immature Platelets 3.9 % (1.1-6.1); Lymphocytes # 0.8 K/mcL (0.6-4.6); Lymphocytes % 81.4 %; Mean Corpuscular HGB Conc 33.6 g/dL (31.6-35.5); Mean Corpuscular Hemoglobin 28.3 pg (28.0-33.3); Mean Corpuscular Volume 84.2 fL (83.0-100.0); Mean Platelet Volume 11.2 fL (9.4-12.4); Monocytes # 0.1 K/mcL (0.0-1.3); Monocytes % 5.2 %; Neutrophils # 0.1 K/mcL (1.6-8.9); Red Blood Count 2.72 M/mcL (3.82-4.97); Red Cell Distribution Width 12.7 % (11.5-14.5); Segmented Neutrophils % 12.4 %
[2020-03-09 01:53] LABS: Platelet Count 17 K/mcL (140-400)
[2020-03-09 02:04] LABS: BUN/Creatinine Ratio 20 (6-26); Blood Urea Nitrogen 14 mg/dL (8-23); Calcium 8.7 mg/dL (8.6-10.3); Carbon Dioxide 25 mEq/L (23-29); Chloride 111 mEq/L (98-107); Glucose 122 mg/dL (70-105); Osmolality,Calculated 294 (280-300); Potassium 4.2 mEq/L (3.5-5.1); Sodium 141 mEq/L (136-145); eGFR For African Americans > 60 (> 60); eGFR For Non-African Americans > 60 (> 60)
[2020-03-09 02:05] LABS: Platelet Estimate Marked Decrease (Normal)
[2020-03-09] MEDS: Insulin LISPRO 300 UNITS/3 ML VIAL SQ SCH ×3 (08:20→16:38)
[2020-03-10] MEDS ORDERED: CYTARABINE SQ SCH
[2020-03-10] MEDS ORDERED: EPINEPHrine 1 MG/ML VIAL SQ PRN
[2020-03-10] MEDS ORDERED: Hydrocortisone Sodium Succ 100 MG/2 ML VIAL IVP PRN
[2020-03-10] MEDS ORDERED: VENETOCLAX 200 MG PO SCH (09:00)
[2020-03-10 09:11] LABS: Eosinophils % 0.9 %; Hematocrit 30.8 % (35.3-44.9); Hemoglobin 10.6 g/dL (11.5-15.4); Immature Platelets 4.6 % (1.1-6.1); Lymphocytes # 0.9 K/mcL (0.6-4.6); Mean Corpuscular HGB Conc 34.4 g/dL (31.6-35.5); Mean Corpuscular Hemoglobin 29.6 pg (28.0-33.3); Mean Platelet Volume 11.3 fL (9.4-12.4); Monocytes # 0.1 K/mcL (0.0-1.3); Monocytes % 5.2 %; Neutrophils # 0.2 K/mcL (1.6-8.9); Red Blood Count 3.58 M/mcL (3.82-4.97); Red Cell Distribution Width 13.1 % (11.5-14.5); Segmented Neutrophils % 18.9 %; White Blood Count 1.2 K/mcL (4.3-11.1)
[2020-03-10 09:14] LABS: Platelet Count 11 K/mcL (140-400)
[2020-03-10 09:29] LABS: BUN/Creatinine Ratio 21 (6-26); Blood Urea Nitrogen 15 mg/dL (8-23); Calcium 8.8 mg/dL (8.6-10.3); Carbon Dioxide 26 mEq/L (23-29); Chloride 109 mEq/L (98-107); Glucose 136 mg/dL (70-105); Osmolality,Calculated 293 (280-300); Potassium 4.3 mEq/L (3.5-5.1); Sodium 140 mEq/L (136-145); eGFR For African Americans > 60 (> 60); eGFR For Non-African Americans > 60 (> 60)
[2020-03-10 09:53] LABS: Platelet Estimate Marked Decrease (Normal)
[2020-03-10 09:54] LABS: Reactive Lymphocytes Present (Not Present)
[2020-03-10] MEDS: Insulin LISPRO 300 UNITS/3 ML VIAL SQ SCH ×3 (11:27→16:35)
[2020-03-10] MEDS ORDERED: 0.9 % Sodium Chloride 250 ML ONE (11:38)
[2020-03-10] MEDS: Cyanocobalamin (B-12) 1,000 MCG TABLET PO SCH (11:45)
[2020-03-10] MEDS: allopurinoL 300 MG TABLET PO SCH (11:45)
[2020-03-10] MEDS: Multivit/Ca/Min/Fe/FA 1 TAB TABLET PO SCH (11:45)
[2020-03-10] MEDS: *HR* LORazepam 0.5 MG TABLET PO SCH (21:15)
[2020-03-10] MEDS: Mirtazapine 15 MG TABLET PO SCH (21:16)
[2020-03-11] MEDS ORDERED: Hydrocortisone Sodium Succ 100 MG/2 ML VIAL IVP PRN
[2020-03-11] MEDS ORDERED: CYTARABINE SQ SCH
[2020-03-11] MEDS ORDERED: EPINEPHrine 1 MG/ML VIAL SQ PRN
[2020-03-11 04:30] LABS: Mean Corpuscular HGB Conc 34.3 g/dL (31.6-35.5); Red Cell Distribution Width 13.1 % (11.5-14.5)
[2020-03-11 04:33] LABS: Hematocrit 28.9 % (35.3-44.9); Hemoglobin 9.9 g/dL (11.5-15.4); Immature Platelets 4.8 % (1.1-6.1); Lymphocytes # 0.6 K/mcL (0.6-4.6); Lymphocytes % 70.7 %; Mean Corpuscular Hemoglobin 29.1 pg (28.0-33.3); Monocytes # 0.1 K/mcL (0.0-1.3); Monocytes % 6.1 %; Neutrophils # 0.2 K/mcL (1.6-8.9); Segmented Neutrophils % 23.2 %
[2020-03-11 04:52] LABS: BUN/Creatinine Ratio 25 (6-26); Blood Urea Nitrogen 17 mg/dL (8-23); Calcium 8.8 mg/dL (8.6-10.3); Carbon Dioxide 26 mEq/L (23-29); Chloride 110 mEq/L (98-107); Glucose 132 mg/dL (70-105); Osmolality,Calculated 295 (280-300); Potassium 3.9 mEq/L (3.5-5.1); Sodium 141 mEq/L (136-145); eGFR For African Americans > 60 (> 60); eGFR For Non-African Americans > 60 (> 60)
[2020-03-11 05:08] LABS: Platelet Count 8 K/mcL (140-400); White Blood Count 0.8 K/mcL (4.3-11.1)
[2020-03-11] MEDS ORDERED: 0.9 % Sodium Chloride 250 ML IVC SCH (05:30)
[2020-03-11 06:21] LABS: Platelet Estimate Marked Decrease (Normal); Reactive Lymphocytes Present (Not Present)
[2020-03-11] MEDS: Insulin LISPRO 300 UNITS/3 ML VIAL SQ SCH ×3 (11:51→17:10)
[2020-03-11] MEDS ORDERED: 0.9 % Sodium Chloride 250 ML ONE (12:53)
[2020-03-11] MEDS: Multivit/Ca/Min/Fe/FA 1 TAB TABLET PO SCH (13:03)
[2020-03-11] MEDS: allopurinoL 300 MG TABLET PO SCH (13:04)
[2020-03-11] MEDS: Cyanocobalamin (B-12) 1,000 MCG TABLET PO SCH (13:04)
[2020-03-11] MEDS: Mirtazapine 15 MG TABLET PO SCH (20:56)
[2020-03-11] MEDS: *HR* LORazepam 0.5 MG TABLET PO SCH (20:56)
[2020-03-12] MEDS ORDERED: Hydrocortisone Sodium Succ 100 MG/2 ML VIAL IVP PRN
[2020-03-12] MEDS ORDERED: EPINEPHrine 1 MG/ML VIAL SQ PRN
[2020-03-12] MEDS ORDERED: CYTARABINE SQ SCH
[2020-03-12] MEDS: Insulin LISPRO 300 UNITS/3 ML VIAL SQ SCH ×3 (08:09→18:56)
[2020-03-12] MEDS: allopurinoL 300 MG TABLET PO SCH (10:16)
[2020-03-12] MEDS: Multivit/Ca/Min/Fe/FA 1 TAB TABLET PO SCH (10:16)
[2020-03-12] MEDS: Cyanocobalamin (B-12) 1,000 MCG TABLET PO SCH (10:16)
[2020-03-12 10:47] LABS: Hematocrit 28.1 % (35.3-44.9); Hemoglobin 9.5 g/dL (11.5-15.4); Immature Platelets 4.9 % (1.1-6.1); Lymphocytes # 0.4 K/mcL (0.6-4.6); Mean Corpuscular HGB Conc 33.8 g/dL (31.6-35.5); Mean Corpuscular Hemoglobin 29.2 pg (28.0-33.3); Mean Corpuscular Volume 86.5 fL (83.0-100.0); Mean Platelet Volume 9.6 fL (9.4-12.4); Neutrophils # 0.1 K/mcL (1.6-8.9); Red Blood Count 3.25 M/mcL (3.82-4.97); Red Cell Distribution Width 13.1 % (11.5-14.5)
[2020-03-12 10:56] LABS: Platelet Count 5 K/mcL (140-400); White Blood Count 0.5 K/mcL (4.3-11.1)
[2020-03-12 11:06] LABS: BUN/Creatinine Ratio 23 (6-26); Blood Urea Nitrogen 19 mg/dL (8-23); Calcium 8.4 mg/dL (8.6-10.3); Carbon Dioxide 23 mEq/L (23-29); Chloride 106 mEq/L (98-107); Glucose 251 mg/dL (70-105); Osmolality,Calculated 295 (280-300); Potassium 3.6 mEq/L (3.5-5.1); Sodium 137 mEq/L (136-145); eGFR For African Americans > 60 (> 60); eGFR For Non-African Americans > 60 (> 60)
[2020-03-12 11:07] LABS: Platelet Estimate Marked Decrease (Normal); Reactive Lymphocytes Present (Not Present)
[2020-03-12] MEDS: Ondansetron 4 MG/2 ML VIAL IVP PRN (12:59)
[2020-03-12] MEDS: *HR* LORazepam 0.5 MG TABLET PO SCH (21:52)
[2020-03-12] MEDS: Mirtazapine 15 MG TABLET PO SCH (21:52)
[2020-03-13] MEDS ORDERED: EPINEPHrine 1 MG/ML VIAL SQ PRN
[2020-03-13] MEDS ORDERED: CYTARABINE SQ SCH
[2020-03-13] MEDS ORDERED: Hydrocortisone Sodium Succ 100 MG/2 ML VIAL IVP PRN
[2020-03-13 06:21] LABS: Red Cell Distribution Width 12.8 % (11.5-14.5)
[2020-03-13 06:23] LABS: Hematocrit 25.9 % (35.3-44.9); Immature Granulocytes % 3.2 % (0-4); Immature Platelets 1.9 % (1.1-6.1); Lymphocytes # 0.2 K/mcL (0.6-4.6); Lymphocytes % 58.1 %; Mean Corpuscular HGB Conc 34.7 g/dL (31.6-35.5); Mean Corpuscular Hemoglobin 29.6 pg (28.0-33.3); Mean Corpuscular Volume 85.2 fL (83.0-100.0); Mean Platelet Volume 10.3 fL (9.4-12.4); Monocytes % 6.5 %; Neutrophils # 0.1 K/mcL (1.6-8.9); Platelet Count 16 K/mcL (140-400); Red Blood Count 3.04 M/mcL (3.82-4.97); Segmented Neutrophils % 32.2 %
[2020-03-13 06:25] LABS: White Blood Count 0.3 K/mcL (4.3-11.1)
[2020-03-13 06:35] LABS: Platelet Estimate Marked Decrease (Normal)
[2020-03-13 06:39] LABS: BUN/Creatinine Ratio 28 (6-26); Blood Urea Nitrogen 22 mg/dL (8-23); Calcium 8.7 mg/dL (8.6-10.3); Carbon Dioxide 25 mEq/L (23-29); Chloride 107 mEq/L (98-107); Glucose 197 mg/dL (70-105); Osmolality,Calculated 295 (280-300); Potassium 4.1 mEq/L (3.5-5.1); Sodium 138 mEq/L (136-145); eGFR For African Americans > 60 (> 60); eGFR For Non-African Americans > 60 (> 60)
[2020-03-13] MEDS: Insulin LISPRO 300 UNITS/3 ML VIAL SQ SCH ×3 (08:48→16:44)
[2020-03-13] MEDS: Multivit/Ca/Min/Fe/FA 1 TAB TABLET PO SCH (08:49)
[2020-03-13] MEDS: allopurinoL 300 MG TABLET PO SCH (08:49)
[2020-03-13] MEDS: Cyanocobalamin (B-12) 1,000 MCG TABLET PO SCH (08:49)
[2020-03-13] MEDS: Ondansetron 4 MG/2 ML VIAL IVP PRN (12:35)
[2020-03-13] MEDS: Mirtazapine 15 MG TABLET PO SCH (20:37)
[2020-03-13] MEDS: Acetaminophen 325 MG TABLET PO PRN (20:37)
[2020-03-13] MEDS: *HR* LORazepam 0.5 MG TABLET PO SCH (20:37)
[2020-03-14 06:20] LABS: Hemoglobin 9.2 g/dL (11.5-15.4); Mean Corpuscular Volume 87.3 fL (83.0-100.0)
[2020-03-14 06:22] LABS: Basophils % 1.1 %; Eosinophils % 1.1 %; Hematocrit 27.4 % (35.3-44.9); Immature Platelets 2.7 % (1.1-6.1); Lymphocytes # 0.8 K/mcL (0.6-4.6); Lymphocytes % 89.8 %; Mean Corpuscular HGB Conc 33.6 g/dL (31.6-35.5); Mean Corpuscular Hemoglobin 29.3 pg (28.0-33.3); Mean Platelet Volume 11.2 fL (9.4-12.4); Monocytes % 4.5 %; Red Blood Count 3.14 M/mcL (3.82-4.97); Red Cell Distribution Width 12.5 % (11.5-14.5); Segmented Neutrophils % 3.5 %
[2020-03-14 06:26] LABS: Platelet Count 12 K/mcL (140-400); White Blood Count 0.9 K/mcL (4.3-11.1)
[2020-03-14 06:39] LABS: BUN/Creatinine Ratio 27 (6-26); Blood Urea Nitrogen 22 mg/dL (8-23); Calcium 9.1 mg/dL (8.6-10.3); Carbon Dioxide 28 mEq/L (23-29); Chloride 110 mEq/L (98-107); Glucose 153 mg/dL (70-105); Osmolality,Calculated 300 (280-300); Potassium 4.2 mEq/L (3.5-5.1); Sodium 142 mEq/L (136-145); eGFR For African Americans > 60 (> 60); eGFR For Non-African Americans > 60 (> 60)
[2020-03-14 07:16] LABS: Platelet Estimate Marked Decrease (Normal)
[2020-03-14 08:11] VITALS: BP 142/84
[2020-03-14] MEDS: allopurinoL 300 MG TABLET PO SCH (08:20)
[2020-03-14] MEDS: Insulin LISPRO 300 UNITS/3 ML VIAL SQ SCH ×2 (08:21→13:31)
[2020-03-14] MEDS: Cyanocobalamin (B-12) 1,000 MCG TABLET PO SCH (08:21)
[2020-03-14] MEDS: Multivit/Ca/Min/Fe/FA 1 TAB TABLET PO SCH (08:22)
== END 2020-03-14 15:14 | disposition home health service (06) | DRG 808 ==
LOC: 3ANU → SUATTDRO 23:55
PROVIDERS: ADMIT Student in an Organized Health Care Education/Training Program; ATTEND Family Medicine

== ENCOUNTER 2020-07-20 23:37 | Inpatient (IN) ==
[2020-07-21 00:42] LABS: Nucleated Red Blood Cells 0.1 /100 WBC (0)
[2020-07-21 00:44] LABS: Hemoglobin 6.9 g/dL (11.5-15.4); Immature Platelets 13.4 % (1.1-6.1); Mean Corpuscular HGB Conc 32.9 g/dL (31.6-35.5); Mean Corpuscular Hemoglobin 29.6 pg (28.0-33.3); Mean Corpuscular Volume 90.1 fL (83.0-100.0); Red Blood Count 2.33 M/mcL (3.82-4.97); Red Cell Distribution Width 15.2 % (11.5-14.5); White Blood Count 25.3 K/mcL (4.3-11.1)
[2020-07-21 00:47] LABS: INR 1.3; Prothrombin Time 14.9 Seconds (9.4-12.1)
[2020-07-21 00:49] LABS: Platelet Count 4 K/mcL (140-400)
[2020-07-21 00:50] LABS: Activated Partial Thrombo Time 29.4 Seconds (26.0-36.0)
[2020-07-21 00:56] LABS: BUN/Creatinine Ratio 24 (6-26); Blood Urea Nitrogen 22 mg/dL (8-23); Carbon Dioxide 25 mEq/L (23-29); Chloride 105 mEq/L (98-107); Glucose 168 mg/dL (70-105); Osmolality,Calculated 291 (280-300); Sodium 137 mEq/L (136-145); eGFR For African Americans > 60 (> 60); eGFR For Non-African Americans > 60 (> 60)
[2020-07-21 01:31] LABS: Platelet Estimate Marked Decrease (Normal); Reactive Lymphocytes Present (Not Present)
[2020-07-21 01:32] LABS: Smudge Cells Present (Not Present)
[2020-07-21] MEDS ORDERED: Acetaminophen 325 MG TABLET PO PRN (02:50)
[2020-07-21] MEDS ORDERED: Ondansetron 4 MG/2 ML VIAL IVP PRN (02:50)
[2020-07-21] MEDS ORDERED: *HR* Promethazine 25 MG/ML VIAL IM PRN (02:50)
[2020-07-21] MEDS ORDERED: Naloxone 0.4 MG/ML INJ IVP PRN (02:50)
[2020-07-21] MEDS ORDERED: D5% in Water 1,000 ML IVC PRN (02:53)
[2020-07-21] MEDS ORDERED: *HR* Dextrose 50 % in Water (Vial) 50 ML VIAL IVP PRN (02:53)
[2020-07-21] MEDS ORDERED: Dextrose Gel 15 GM/37.5 ML TUBE PO PRN ×2 (02:53)
[2020-07-21] MEDS: 0.9 % Sodium Chloride 250 ML ONE (02:54)
[2020-07-21 05:39] LABS: Bacteria,Urine Few per hpf (None-Few); Bilirubin,Urine Negative (Negative); Blood,Urine Small (Negative); Clarity,Urine Clear (Clear); Color,Urine Light-Yellow (Yellow); Glucose,Urine (UA) Normal (Normal); Hyaline Casts,Urine Few per lpf (None Seen); Ketones,Urine Negative (Negative); Leukocyte Esterase,Urine Moderate (Negative); Mucus,Urine Few per lpf (None-Few); Nitrite,Urine Negative (Negative); Protein,Urine Trace mg/dL (Neg-Trace); RBC,Urine 0-3 per hpf (0-3); Specific Gravity,Urine 1.013 (1.010-1.025); Squamous Epithelial Cell,Urine Few per hpf (None-Few); Urobilinogen,Urine Normal (Normal); WBC,Urine 15-30 per hpf (0-3)
[2020-07-21] MEDS ORDERED: 0.9 % Sodium Chloride 250 ML ONE ×2 (08:20→23:25)
[2020-07-21] MEDS: Insulin LISPRO 300 UNITS/3 ML VIAL SUBQ SCH ×4 (08:56→20:28)
[2020-07-21] MEDS: *HR* HYDROcodone/Acet 5/325 mg TABLET PO PRN (09:03)
[2020-07-21 18:48] LABS: Hematocrit 21.8 % (35.3-44.9); Hemoglobin 7.4 g/dL (11.5-15.4); Immature Platelets 15.2 % (1.1-6.1); Mean Corpuscular HGB Conc 33.9 g/dL (31.6-35.5); Mean Corpuscular Hemoglobin 29.6 pg (28.0-33.3); Mean Corpuscular Volume 87.2 fL (83.0-100.0); Red Cell Distribution Width 15.2 % (11.5-14.5); White Blood Count 17.8 K/mcL (4.3-11.1)
[2020-07-21 18:52] LABS: Platelet Count 3 K/mcL (140-400)
[2020-07-21] MEDS: Mirtazapine 15 MG TABLET PO SCH (20:28)
[2020-07-21] MEDS: *HR* LORazepam 0.5 MG TABLET PO SCH (20:28)
[2020-07-22] MEDS: *HR* HYDROcodone/Acet 5/325 mg TABLET PO PRN (01:28)
[2020-07-22 01:46] LABS: Hemoglobin 7.3 g/dL (11.5-15.4); Red Cell Distribution Width 15.3 % (11.5-14.5)
[2020-07-22 01:48] LABS: Hematocrit 21.5 % (35.3-44.9); Immature Platelets 6.8 % (1.1-6.1); Mean Corpuscular Hemoglobin 29.3 pg (28.0-33.3); Mean Corpuscular Volume 86.3 fL (83.0-100.0); Mean Platelet Volume 9.5 fL (9.4-12.4); Red Blood Count 2.49 M/mcL (3.82-4.97)
[2020-07-22 02:05] LABS: BUN/Creatinine Ratio 24 (6-26); Blood Urea Nitrogen 22 mg/dL (8-23); Calcium 8.9 mg/dL (8.6-10.3); Carbon Dioxide 25 mEq/L (23-29); Chloride 108 mEq/L (98-107); Glucose 138 mg/dL (70-105); Osmolality,Calculated 296 (280-300); Potassium 3.9 mEq/L (3.5-5.1); Sodium 140 mEq/L (136-145); eGFR For African Americans > 60 (> 60); eGFR For Non-African Americans > 60 (> 60)
[2020-07-22] MEDS ORDERED: 0.9 % Sodium Chloride 250 ML ONE ×3 (02:24→17:41)
[2020-07-22] MEDS: Acyclovir 200 MG CAPSULE PO SCH (08:38)
[2020-07-22] MEDS: Insulin LISPRO 300 UNITS/3 ML VIAL SUBQ SCH ×4 (08:45→22:25)
[2020-07-22 13:02] LABS: Hematocrit 22.6 % (35.3-44.9); Hemoglobin 7.6 g/dL (11.5-15.4); Mean Corpuscular HGB Conc 33.6 g/dL (31.6-35.5)
[2020-07-22 13:04] LABS: Immature Platelets 18.7 % (1.1-6.1); Mean Corpuscular Hemoglobin 29.8 pg (28.0-33.3); Mean Corpuscular Volume 88.6 fL (83.0-100.0); Nucleated Red Blood Cells 0.1 /100 WBC (0); Red Blood Count 2.55 M/mcL (3.82-4.97); Red Cell Distribution Width 15.3 % (11.5-14.5); White Blood Count 21.3 K/mcL (4.3-11.1)
[2020-07-22 13:26] LABS: Platelet Count 3 K/mcL (140-400)
[2020-07-22 15:21] LABS: Eosinophils # 0.4 K/mcL (0.0-0.6); Lymphocytes # 3.6 K/mcL (0.6-4.6); Monocytes # 0.9 K/mcL (0.0-1.3); Neutrophils # 11.7 K/mcL (1.6-8.9); Platelet Estimate Marked Decrease (Normal); Reactive Lymphocytes Present (Not Present); Smudge Cells Present (Not Present)
[2020-07-22 16:53] LABS: Neutrophils # 12.1 K/mcL (1.6-8.9)
[2020-07-22 16:54] LABS: Lymphocytes # 5.1 K/mcL (0.6-4.6); Monocytes # 1.5 K/mcL (0.0-1.3)
[2020-07-22] MEDS: Mirtazapine 15 MG TABLET PO SCH (22:23)
[2020-07-22] MEDS: *HR* LORazepam 0.5 MG TABLET PO SCH (22:23)
[2020-07-23] MEDS: *HR* HYDROcodone/Acet 5/325 mg TABLET PO PRN ×2 (04:40→14:09)
[2020-07-23 07:11] LABS: Red Cell Distribution Width 15.2 % (11.5-14.5)
[2020-07-23 07:13] LABS: Hematocrit 19.6 % (35.3-44.9); Hemoglobin 6.6 g/dL (11.5-15.4); Immature Platelets 17.5 % (1.1-6.1); Mean Corpuscular HGB Conc 33.7 g/dL (31.6-35.5); Mean Corpuscular Hemoglobin 29.2 pg (28.0-33.3); Mean Corpuscular Volume 86.7 fL (83.0-100.0); Red Blood Count 2.26 M/mcL (3.82-4.97); White Blood Count 18.5 K/mcL (4.3-11.1)
[2020-07-23 07:17] LABS: Platelet Count 2 K/mcL (140-400)
[2020-07-23] MEDS: Insulin LISPRO 300 UNITS/3 ML VIAL SUBQ SCH ×4 (09:16→20:22)
[2020-07-23] MEDS: Acyclovir 200 MG CAPSULE PO SCH (09:18)
[2020-07-23 09:52] LABS: Monocytes # 1.5 K/mcL (0.0-1.3); Neutrophils # 8.9 K/mcL (1.6-8.9); Platelet Estimate Marked Decrease (Normal)
[2020-07-23] MEDS ORDERED: 0.9 % Sodium Chloride 250 ML ONE ×3 (10:39→18:24)
[2020-07-23] MEDS: 0.9 % Sodium Chloride 250 ML ONE (14:10)
[2020-07-23] MEDS: *HR* LORazepam 0.5 MG TABLET PO SCH (20:12)
[2020-07-23] MEDS: Mirtazapine 15 MG TABLET PO SCH (20:13)
[2020-07-23] MEDS: *HR* OxyCODONE Immed Rel 5 MG TABLET PO PRN (20:13)
[2020-07-24 00:03] LABS: Hematocrit 21.5 % (35.3-44.9); Hemoglobin 7.3 g/dL (11.5-15.4); Mean Corpuscular Hemoglobin 29.7 pg (28.0-33.3); Mean Corpuscular Volume 87.4 fL (83.0-100.0); Mean Platelet Volume 10.4 fL (9.4-12.4); Red Blood Count 2.46 M/mcL (3.82-4.97); Red Cell Distribution Width 14.6 % (11.5-14.5); White Blood Count 16.7 K/mcL (4.3-11.1)
[2020-07-24 00:08] LABS: Platelet Count 21 K/mcL (140-400)
[2020-07-24 00:11] LABS: BUN/Creatinine Ratio 24 (6-26); Blood Urea Nitrogen 22 mg/dL (8-23); Calcium 8.7 mg/dL (8.6-10.3); Carbon Dioxide 27 mEq/L (23-29); Chloride 108 mEq/L (98-107); Glucose 142 mg/dL (70-105); Osmolality,Calculated 298 (280-300); Potassium 4.1 mEq/L (3.5-5.1); Sodium 141 mEq/L (136-145); eGFR For African Americans > 60 (> 60); eGFR For Non-African Americans > 60 (> 60)
[2020-07-24 00:36] LABS: Eosinophils # 0.3 K/mcL (0.0-0.6); Lymphocytes # 4.3 K/mcL (0.6-4.6); Neutrophils # 7.4 K/mcL (1.6-8.9); Platelet Estimate Marked Decrease (Normal)
[2020-07-24 00:37] LABS: Anisocytosis 1+ (Not Present); Reactive Lymphocytes Present (Not Present)
[2020-07-24] MEDS: *HR* OxyCODONE Immed Rel 5 MG TABLET PO PRN (02:26)
[2020-07-24 03:22] LABS: Hematocrit 23.1 % (35.3-44.9); Hemoglobin 7.7 g/dL (11.5-15.4); Mean Corpuscular HGB Conc 33.3 g/dL (31.6-35.5); Mean Corpuscular Hemoglobin 29.7 pg (28.0-33.3); Mean Corpuscular Volume 89.2 fL (83.0-100.0); Mean Platelet Volume 9.7 fL (9.4-12.4); Red Blood Count 2.59 M/mcL (3.82-4.97); Red Cell Distribution Width 14.7 % (11.5-14.5); White Blood Count 17.4 K/mcL (4.3-11.1)
[2020-07-24 03:25] LABS: Platelet Count 22 K/mcL (140-400)
[2020-07-24 03:27] LABS: Monocytes # 0.7 K/mcL (0.0-1.3); Neutrophils # 11.5 K/mcL (1.6-8.9); Platelet Estimate Marked Decrease (Normal); Reactive Lymphocytes Present (Not Present)
[2020-07-24 03:41] LABS: BUN/Creatinine Ratio 24 (6-26); Blood Urea Nitrogen 22 mg/dL (8-23); Calcium 8.7 mg/dL (8.6-10.3); Carbon Dioxide 26 mEq/L (23-29); Chloride 108 mEq/L (98-107); Glucose 137 mg/dL (70-105); Osmolality,Calculated 297 (280-300); Potassium 3.9 mEq/L (3.5-5.1); Sodium 141 mEq/L (136-145); eGFR For African Americans > 60 (> 60); eGFR For Non-African Americans > 60 (> 60)
[2020-07-24] MEDS: Insulin LISPRO 300 UNITS/3 ML VIAL SUBQ SCH ×4 (09:42→21:54)
[2020-07-24] MEDS: Acyclovir 200 MG CAPSULE PO SCH (10:19)
[2020-07-24] MEDS ORDERED: Furosemide 40 MG/4 ML VIAL IVP ONE (12:24)
[2020-07-24 14:00] LABS: % Iron Saturation 96 % (15-50); Iron 264 mcg/dL (50-170); Transferrin 197 mg/dL (203-362)
[2020-07-24 14:21] LABS: Ferritin > 1500 ng/mL (10-120)
[2020-07-24 14:24] LABS: Folate 19.1 ng/mL (3.0-16.0)
[2020-07-24 14:29] LABS: Vitamin B12 > 1500 pg/mL (250-1100)
[2020-07-24] MEDS: *HR* HYDROcodone/Acet 5/325 mg TABLET PO PRN (17:57)
[2020-07-24] MEDS: *HR* LORazepam 0.5 MG TABLET PO SCH (21:54)
[2020-07-24] MEDS: Mirtazapine 15 MG TABLET PO SCH (21:54)
[2020-07-25] MEDS: *HR* OxyCODONE Immed Rel 5 MG TABLET PO PRN (02:03)
[2020-07-25 05:09] LABS: Hematocrit 21.7 % (35.3-44.9); Hemoglobin 7.3 g/dL (11.5-15.4); Immature Platelets 4.5 % (1.1-6.1); Mean Corpuscular HGB Conc 33.6 g/dL (31.6-35.5); Mean Corpuscular Hemoglobin 29.8 pg (28.0-33.3); Mean Corpuscular Volume 88.6 fL (83.0-100.0); Mean Platelet Volume 10.9 fL (9.4-12.4); Red Blood Count 2.45 M/mcL (3.82-4.97); Red Cell Distribution Width 14.6 % (11.5-14.5); White Blood Count 14.9 K/mcL (4.3-11.1)
[2020-07-25 05:14] LABS: Platelet Count 11 K/mcL (140-400)
[2020-07-25 05:26] LABS: BUN/Creatinine Ratio 24 (6-26); Blood Urea Nitrogen 23 mg/dL (8-23); Calcium 8.8 mg/dL (8.6-10.3); Carbon Dioxide 27 mEq/L (23-29); Chloride 106 mEq/L (98-107); Glucose 142 mg/dL (70-105); Osmolality,Calculated 300 (280-300); Potassium 3.7 mEq/L (3.5-5.1); Sodium 142 mEq/L (136-145); eGFR For African Americans > 60 (> 60); eGFR For Non-African Americans 57 (> 60)
[2020-07-25 05:39] LABS: Anisocytosis 1+ (Not Present); Lymphocytes # 4.5 K/mcL (0.6-4.6); Microcytosis Present (Not Present); Monocytes # 0.3 K/mcL (0.0-1.3); Neutrophils # 6.3 K/mcL (1.6-8.9); Platelet Estimate Marked Decrease (Normal)
[2020-07-25] MEDS: Insulin LISPRO 300 UNITS/3 ML VIAL SUBQ SCH ×4 (08:42→21:29)
[2020-07-25] MEDS: Acyclovir 200 MG CAPSULE PO SCH (08:42)
[2020-07-25] MEDS: *HR* HYDROcodone/Acet 5/325 mg TABLET PO PRN ×2 (10:52→23:30)
[2020-07-25] MEDS ORDERED: 0.9 % Sodium Chloride 250 ML IVC SCH (12:00)
[2020-07-25] MEDS ORDERED: 0.9 % Sodium Chloride 250 ML ONE (14:06)
[2020-07-25] MEDS: *HR* LORazepam 0.5 MG TABLET PO SCH (21:32)
[2020-07-25] MEDS: Mirtazapine 15 MG TABLET PO SCH (21:33)
[2020-07-26 05:44] VITALS: BP 146/64
[2020-07-26] MEDS: *HR* OxyCODONE Immed Rel 5 MG TABLET PO PRN (05:44)
[2020-07-26 06:53] LABS: Mean Corpuscular Hemoglobin 29.6 pg (28.0-33.3); Red Cell Distribution Width 14.1 % (11.5-14.5)
[2020-07-26 06:55] LABS: Hemoglobin 8.4 g/dL (11.5-15.4); Immature Platelets 4.2 % (1.1-6.1); Mean Corpuscular HGB Conc 33.6 g/dL (31.6-35.5); Mean Platelet Volume 10.1 fL (9.4-12.4); Nucleated Red Blood Cells 0.1 /100 WBC (0); Red Blood Count 2.84 M/mcL (3.82-4.97)
[2020-07-26 07:19] LABS: Platelet Count 23 K/mcL (140-400)
[2020-07-26 07:50] LABS: Lymphocytes # 2.8 K/mcL (0.6-4.6); Monocytes # 0.3 K/mcL (0.0-1.3); Neutrophils # 6.7 K/mcL (1.6-8.9); Platelet Estimate Decreased (Normal); Reactive Lymphocytes Present (Not Present)
[2020-07-26] MEDS: Acyclovir 200 MG CAPSULE PO SCH (08:37)
[2020-07-26] MEDS: Insulin LISPRO 300 UNITS/3 ML VIAL SUBQ SCH ×2 (08:37→12:13)
[2020-07-26 09:37] LABS: BUN/Creatinine Ratio 23 (6-26); Blood Urea Nitrogen 22 mg/dL (8-23); Calcium 9.2 mg/dL (8.6-10.3); Carbon Dioxide 26 mEq/L (23-29); Chloride 107 mEq/L (98-107); Glucose 142 mg/dL (70-105); Osmolality,Calculated 300 (280-300); Potassium 3.9 mEq/L (3.5-5.1); Sodium 142 mEq/L (136-145); eGFR For African Americans > 60 (> 60); eGFR For Non-African Americans 57 (> 60)
[2020-07-26] MEDS ORDERED: Furosemide 40 MG TABLET PO SCH (11:15)
== END 2020-07-26 14:06 | disposition home or self-care (01) | DRG 314 ==
LOC: EMEROOARM 23:37 → 3ANU 23:37 → SUATTDRO 07-21 03:07 → 3ANU 07-21 03:59
PROVIDERS: ADMIT Internal Medicine; ATTEND Student in an Organized Health Care Education/Training Program